=== PATIENT | female | born 1965 | race American Indian/Alaskan Native ===

== ENCOUNTER 2017-05-18 16:54 | Inpatient (IN) | payer MEDICARE ==
[2017-05-18 17:36] VITALS: BMI 27.4
[2017-05-18 18:08] LABS: BASO # 0.1 K/uL (0.0-0.2); BASO % 0.5 % (0.0-2.0); EOS # 0.5 K/uL (0.0-0.7); EOS % 2.8 % (0.0-4.0); LYMPH # 4.1 K/uL (1.0-4.3); LYMPH % 23.7 % (20.0-40.0); MEAN CELL VOLUME 81.8 fL (81.0-99.0); MEAN CORPUSCULAR HEMOGLOBIN 26.7 pg (27.0-31.0); MEAN CORPUSCULAR HGB CONC 32.6 g/dL (33.0-37.0); MONO # 0.8 K/uL (0.0-0.8); MONO % 4.3 % (0.0-10.0); RED CELL DISTRIBUTION WIDTH 14.1 % (11.5-14.5); WHITE BLOOD COUNT 17.4 K/uL (4.8-10.8)
[2017-05-18 18:26] LABS: VENOUS BLOOD GAS BASE EXCESS 6.2 mmol/L (0.0-2.0); VENOUS BLOOD GAS PCO2 54 mmHg (40-60); VENOUS BLOOD PH 7.39 (7.32-7.43)
--- NOTE | 2017-05-18 18:26 | C.PDOC ---
History Of Present Illness 51-year-old female, PMHx includes paraplegia, presents to the emergency department with complaints of a fever, chills, a clogged suprapubic alegria catheter since yesterday, multiple episodes of shortness of breath today, and a decubitus ulcer to right posterior thigh. Patient recently moved to the area from [place], where her physicans were. She denies cough, vomiting, diarrhea., chest pain, palpitations. Time Seen by Provider: 05/18/17 17:21 Chief Complaint (Nursing): Shortness Of Breath History Per: Patient History/Exam Limitations: no limitations Onset/Duration Of Symptoms: Days Current Symptoms Are (Timing): Still Present Current Respiratory Medications: See Home Med List Severity: Moderate Past Medical History Reviewed: Historical Data, Nursing Documentation, Vital Signs Vital Signs: Last Vital Signs Temp 97.1 F L 05/22/17 07:10 Pulse 86 05/22/17 09:23 Resp 20 05/22/17 07:10 BP 119/86 05/22/17 09:23 Pulse Ox 98 05/22/17 07:10 Family History: States: No Known Family Hx Review Of Systems Except As Marked, All Systems Reviewed And Found Negative. Constitutional: Positive for: Fever, Chills Cardiovascular: Negative for: Chest Pain, Palpitations Respiratory: Positive for: Shortness of Breath. Negative for: Cough, Sputum Gastrointestinal: Negative for: Nausea, Vomiting, Abdominal Pain, Diarrhea Musculoskeletal: Negative for: Back Pain Skin: Positive for: Other (decubitus ulcer) Physical Exam - Physical Exam Appears: Well, Non-toxic, No Acute Distress Skin: Warm, Dry, No Rash Head: Normacephalic Eye(s): bilateral: Normal Inspection Oral Mucosa: Moist Neck: Normal ROM Chest: Symmetrical Cardiovascular: Rhythm Regular, No Murmur Respiratory: Normal Breath Sounds, No Accessory Muscle Use, No Rales, No Rhonchi , No Wheezing Gastrointestinal/Abdominal: Normal Exam, Bowel Sounds, Soft, No Tenderness Rectal: Other (a stage 2 4x1cm decubitus ulcer at the right posterior thigh, where the gluteus meets the thigh) Pelvic: Other (Suprapubic catheter w/ cloudy yellow urine. No surrounding erythema or swelling from Stoma. ) Pulses: Left Dorsalis Pedis: Normal, Right Dorsalis Pedis: Normal Neurological/Psych: Oriented x3 ED Course And Treatment - Laboratory Results Result Diagrams: 05/22/17 06:26 05/22/17 06:26 O2 Sat by Pulse Oximetry: 99 (RA) Pulse Ox Interpretation: Normal - Radiology CXR: Interpreted by Me, Viewed By Me (no infiltrates/effusions) Progress Note: Blood work, UA, EKG, CXR ordered and reviewed. Patient given IV NS bolus. 7:15PM- Multiple attemps made by nurse for peripheral IV access. 2 attempts made by me at B/L EJs that were unsuccessful. PICC line consult entered for tomorrow PICC insertion. Night nurse able to insert small peripheral IV for IV antibiotics. IV cefepime and IV NS bolus given. - Physician Consult Information Physician Contacted: Chelsea Garcia Outcome Of Conversation: Discussed patient with Dr. Garcia, her prior PMD when she lived in [place]. He agrees with admission to his service for UTI, leukocytosis in patient with suprapubic catheter and paraplegia. He is aware CTA chest pending. Disposition - Disposition Disposition: HOSPITALIZED Disposition Time: 19:15 Condition: STABLE - Clinical Impression Clinical Impression: Leukocytosis, Suprapubic catheter, Paraplegia, UTI (urinary tract infection) - Scribe Statement The provider has reviewed the documentation as recorded by the Scribe (Josefina Bledsoe) All medical record entries made by the Scribe were at my direction and personally dictated by me. I have reviewed the chart and agree that the record accurately reflects my personal performance of the history, physical exam, medical decision making, and the department course for this patient. I have also personally directed, reviewed, and agree with the discharge instructions and disposition. Decision To Admit - Pt Status Changed To: Hospital Disposition Of: Inpatient - Admit Certification Admit to Inpatient:: After my assessment, the patient will require hospitalization for at least two midnights. This is because of the severity of symptoms shown, intensity of services needed, and/or the medical risk in this patient being treated as an outpatient. - InPatient: Physician Admission Certification: I certify that this patient requires 2 or more midnights of care for the following reason:: see notes - . Bed Request Type: Regular Admitting Physician: Chelsea Garcia Patient Diagnosis: UTI (urinary tract infection), Suprapubic catheter, Leukocytosis, Paraplegia
[2017-05-18] MEDS ORDERED: Sodium Chloride 0.9% 1,000 ML IV ONE (18:33)
[2017-05-18] MEDS ORDERED: Cefepime 1 GM in Sodium Chloride 0.9% 50 ML IVPB STA (18:41)
[2017-05-18 19:00] LABS: RBC URINE 152 /hpf (0-3); URINE BACTERIA MOD (<OCC); URINE BILIRUBIN NEGATIVE (NEGATIVE); URINE BLOOD 2+ (NEGATIVE); URINE CALCIUM OXALATE CRYSTALS FEW /hpf (<OCC); URINE COLOR Yellow (YELLOW); URINE GLUCOSE (UA) NORMAL (Normal); URINE KETONE NEGATIVE (NEGATIVE); URINE LEUKOCYTE ESTERASE 3+ Leu/uL (Negative); URINE PROTEIN 2+ mg/dL (NEGATIVE); URINE UROBILINOGEN NORMAL mg/dL (0.2-1.0); WBC URINE 665 /hpf (0-5)
[2017-05-18 19:45] LABS: BILIRUBIN,TOTAL 0.6 mg/dL (0.2-1.3); GFR AFRICAN-AMERICAN > 60; GLUCOSE,RANDOM 88 mg/dL (65-105)
[2017-05-18 19:47] LABS: ALB/GLOB RATIO 0.8 (1.0-2.1); ALKALINE PHOSPHATASE 105 U/L (38-126); ALT/SGPT 40 U/L (9-52); AST/SGOT 31 U/L (14-36); BLOOD UREA NITROGEN 11 mg/dL (7-17); CARBON DIOXIDE 31 mmol/L (22-30); CHLORIDE 103 mmol/L (98-107); POTASSIUM 4.2 mmol/L (3.6-5.2); SODIUM 142 mmol/L (132-148); TOTAL PROTEIN 9.3 g/dL (6.3-8.3)
[2017-05-18] MEDS ORDERED: Iodixanol 320 MG/ML 100 ML BOTTLE IV ONE (20:02)
[2017-05-18] MEDS ORDERED: Cefepime IV 1 gm in Dextrose 1 GM/50 ML BAG IVPB ONE (21:00)
[2017-05-18] MEDS ORDERED: Oxycodone/Acetaminophen 5/325 mg Tab PO PRN (21:10)
[2017-05-18] MEDS ORDERED: Enoxaparin 80 mg Syringe ONE (21:45)
[2017-05-18] MEDS: Enoxaparin 80 mg Syringe SC SCH (22:57)
[2017-05-19 00:57] VITALS: RESP 20
[2017-05-19] MEDS: Oxycodone/Acetaminophen 5/325 mg Tab PO PRN ×4 (01:29→23:49)
--- NOTE | 2017-05-19 08:14 | RAD ---
Chest x-ray single frontal view History: Shortness of breath. Comparison: 04/02/2011. Findings: Mild venous congestion. Right hilar prominence. Tortuous aorta. Persistent ovoid radiopaque density projects over the midline trachea. Impression: Mild venous congestion. Right hilar prominence. Tortuous aorta. Persistent ovoid radiopaque density projects over the midline trachea.
[2017-05-19] MEDS: Enoxaparin 80 mg Syringe SC SCH ×2 (09:41→22:43)
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
[2017-05-19] MEDS: Cefepime IV 1 gm in Dextrose 1 GM/50 ML BAG IVPB SCH (19:50)
[2017-05-20] MEDS: Cefepime IV 1 gm in Dextrose 1 GM/50 ML BAG IVPB SCH ×2 (04:53→16:59)
[2017-05-20] MEDS: Oxycodone/Acetaminophen 5/325 mg Tab PO PRN ×3 (06:06→20:19)
[2017-05-20] MEDS ORDERED: Bisacodyl 5mg EC Tab PO ONE (09:30)
[2017-05-20] MEDS: Enoxaparin 80 mg Syringe SC SCH ×2 (11:10→21:42)
--- NOTE | 2017-05-20 11:33 | CP.PCM.PN ---
Subjective - Date & Time of Evaluation Date of Evaluation: 05/20/17 Time of Evaluation: 08:00 - Subjective Subjective: culture + Pseudomonas iv cefepime reordered Objective - Vital Signs/Intake and Output Vital Signs (last 24 hours): Temp Pulse Resp BP Pulse Ox 97.3 F L 82 20 123/87 99 05/20/17 07:56 05/20/17 07:56 05/20/17 07:56 05/20/17 07:56 05/20/17 07:56 Intake and Output: 05/20/17 05/20/17 06:59 18:59 Output Total 300 Balance -300 - Medications Medications: Current Medications Diphenhydramine HCl (Benadryl) 25 mg PO Q6 PRN PRN Reason: Itching / Pruritus Last Admin: 05/19/17 13:42 Dose: 25 mg Docusate Sodium (Colace) 100 mg PO DAILY [facility] Last Admin: 05/20/17 11:09 Dose: 100 mg Enoxaparin Sodium (Lovenox) 70 mg SC Q12 [facility] Last Admin: 05/20/17 11:10 Dose: 70 mg Cefepime HCl (Maxipime Iv 1 Gm Premix) 1 gm in 50 mls @ 100 mls/hr IVPB Q12H [facility] Last Admin: 05/20/17 04:53 Dose: 100 mls/hr Oxycodone/Acetaminophen (Percocet 5/325 Mg Tab) 2 tab PO Q6H PRN PRN Reason: Pain, severe (8-10) Stop: 05/21/17 21:13 Last Admin: 05/20/17 06:06 Dose: 2 tab - Labs Labs: 05/18/17 18:06 05/18/17 19:28 - Constitutional Appears: Non-toxic, Chronically Ill - Head Exam Head Exam: NORMOCEPHALIC - Eye Exam Eye Exam: absent: Scleral icterus - ENT Exam ENT Exam: Mucous Membranes Dry - Neck Exam Neck Exam: absent: Lymphadenopathy - Respiratory Exam Respiratory Exam: Decreased Breath Sounds - Cardiovascular Exam Cardiovascular Exam: REGULAR RHYTHM - GI/Abdominal Exam GI & Abdominal Exam: Distended, Soft - Rectal Exam Rectal Exam: Deferred - Exam Exam: NORMAL INSPECTION - Extremities Exam Extremities Exam: absent: Pedal Edema - Back Exam Back Exam: absent: CVA tenderness (L), CVA tenderness (R) Assessment and Plan (1) Paraplegia Status: Acute (2) Sepsis Status: Acute (3) UTI (urinary tract infection) Status: Acute
[2017-05-20 11:53] LABS: BASO # 0.1 K/uL (0.0-0.2); BASO % 0.4 % (0.0-2.0); EOS # 0.3 K/uL (0.0-0.7); EOS % 1.9 % (0.0-4.0); HEMATOCRIT 38.7 % (34.0-47.0); LYMPH # 2.9 K/uL (1.0-4.3); LYMPH % 21.6 % (20.0-40.0); MEAN CELL VOLUME 82.5 fL (81.0-99.0); MEAN CORPUSCULAR HEMOGLOBIN 26.8 pg (27.0-31.0); MEAN CORPUSCULAR HGB CONC 32.6 g/dL (33.0-37.0); MEAN PLATELET VOLUME 8.2 fL (7.2-11.7); MONO # 0.6 K/uL (0.0-0.8); MONO % 4.5 % (0.0-10.0); RED CELL DISTRIBUTION WIDTH 14.4 % (11.5-14.5); WHITE BLOOD COUNT 13.5 K/uL (4.8-10.8)
[2017-05-20 12:36] LABS: ALB/GLOB RATIO 1.1 (1.0-2.1); ALKALINE PHOSPHATASE 93 U/L (38-126); ALT/SGPT 41 U/L (9-52); AST/SGOT 19 U/L (14-36); BILIRUBIN,DIRECT 0.2 mg/dL (0.0-0.4); BILIRUBIN,TOTAL 0.2 mg/dL (0.2-1.3); BLOOD UREA NITROGEN 11 mg/dL (7-17); CALCIUM 8.1 mg/dl (8.6-10.4); CARBON DIOXIDE 30 mmol/L (22-30); CHLORIDE 105 mmol/L (98-107); GFR AFRICAN-AMERICAN > 60; GLUCOSE,RANDOM 86 mg/dL (65-105); MAGNESIUM 1.9 mg/dL (1.6-2.3); PHOSPHOROUS 2.3 mg/dL (2.5-4.5); POTASSIUM 3.5 mmol/L (3.6-5.2); SODIUM 142 mmol/L (132-148); TOTAL PROTEIN 6.7 g/dL (6.3-8.3)
--- NOTE | 2017-05-20 13:14 | VASCLAB ---
PROCEDURE: Lower Extremity Venous Duplex Exam. HISTORY: r/o DVT PRIORS: None. TECHNIQUE: Bilateral common femoral, femoral, popliteal and posterior tibial, peroneal and great saphenous veins were evaluated. Flow was assessed with color Doppler, compressibility, assessment of phasic flow and augmentation response. Report prepared by TOYIN Velasquez FINDINGS: RIGHT: 1. Common Femoral Vein: 1.1. Compressibility - Fully compressible: Thrombus - None : Flow - Phasic: Augmentation -Normal: Reflux - None. 2. Femoral Vein: 2.1. Compressibility - Fully compressible: Thrombus - None : Flow - Phasic: Augmentation -Normal: Reflux - None. 3. Popliteal Vein: 3.1. Compressibility - Fully compressible: Thrombus - None : Flow - Phasic: Augmentation -Normal: Reflux - None. 4. Posterior Tibial Vein: 4.1. Compressibility - Fully compressible: Thrombus - None: Flow - Phasic: Augmentation -Normal: Reflux - None. 5. Peroneal Vein: 5.1. Unable to visualize. 6. Great Saphenous Vein: 6.1. Compressibility - Fully compressible: Thrombus - None: Flow - Phasic: Augmentation - Normal: Reflux - None. LEFT: 1. Common Femoral Vein: 1.1. Compressibility - Fully compressible: Thrombus - None: Flow - Phasic: Augmentation -Normal: Reflux - None. 2. Femoral Vein: 2.1. Compressibility - Fully compressible: Thrombus - None: Flow - Phasic: Augmentation -Normal: Reflux - None. 3. Popliteal Vein: 3.1. Compressibility - Fully compressible: Thrombus - None : Flow - Phasic: Augmentation -Normal: Reflux - None. 4. Posterior Tibial Vein: 4.1. Unable to visualize. 5. Peroneal Vein: 5.1. Compressibility - Fully compressible: Thrombus - None: Flow - Phasic: Augmentation -Normal: Reflux - None. 6. Great Saphenous Vein: 6.1. Compressibility - Fully compressible: Thrombus - None: Flow - Phasic: Augmentation - Normal: Reflux - None. OTHER FINDINGS: Technically difficult/limited imaging due to patient condition. Unable to position the patient for proper scanning protocol. IMPRESSION: Right: No evidence of deep or superficial vein thrombosis of the right lower extremity, for the imaged veins. Left: No evidence of deep or superficial vein thrombosis of the left lower extremity, for the imaged veins.
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
[2017-05-20] MEDS ORDERED: Potassium Chloride 20 mEq ER Tab PO ONE (13:30)
--- NOTE | 2017-05-20 14:14 | PCM.SURG1 ---
Surgeon's Initial Post Op Note - Surgeon's Notes Surgeon: Anthony Tello MD Supervisor Inspection: None Type of Anesthesia: Local Pre-Operative Diagnosis: UTI Operative Findings: patent left basilic vein. catheter tip: cavoatrial junction. catheter length: 45 cm Post-Operative Diagnosis: same Operation Performed: LUE PICC Insertion Specimen/Specimens Removed: N/A Estimated Blood Loss: EBL {In ML}: 0 Post-Op Condition: Good Date of Surgery/Procedure: 05/20/17 Time of Surgery/Procedure: 14:14
[2017-05-20] MEDS ORDERED: Iodixanol 320 MG/ML 100 ML BOTTLE IV ONE (15:55)
--- NOTE | 2017-05-20 20:40 | CT ---
EXAM: CT Chest With Intravenous Contrast EXAM DATE/TIME: Exam ordered 05/20/2017 8:23 AM CLINICAL HISTORY: 51 years old, female; Pain; Chest pressure and other: D dimer elevated; Additional info: Elevated ddimer TECHNIQUE: Axial computed tomography images of the chest with intravenous contrast during the arterial phase of enhancement. All CT scans at this facility use one or more dose reduction techniques, viz.: automated exposure control; ma/kV adjustment per patient size (including targeted exams where dose is matched to indication; i.e. head); or iterative reconstruction technique. Coronal and sagittal reformatted images were created and reviewed. CONTRAST: 100 mL of visipaque 320 administered intravenously. COMPARISON: No relevant prior studies available. FINDINGS: Pulmonary arteries: Tiny bubble of air is noted within the main pulmonary artery and is related to the contrast injection. No pulmonary embolism. Aorta: No acute findings. No thoracic aortic aneurysm.Incidental note is made of a ductus diverticulum. Lungs: Unremarkable. No mass. No consolidation. Pleural space: Unremarkable. No significant effusion. No pneumothorax. Heart: Unremarkable. No cardiomegaly. No significant pericardial effusion. No evidence of RV dysfunction. Mediastinum: There is a small hiatal hernia. Bones/joints: Shrapnel is noted within the spinal canal at T4 No acute fracture. No dislocation. Soft tissues: Unremarkable. Lymph nodes: Subcentimeter lymph lesions are seen in the prevascular space. Tubes, lines and devices: The tip of a left PICC line is located within the right atrium IMPRESSION: 1. No pulmonary embolism 2. Small hiatal hernia. 3. Shrapnel within the spinal canal at T4
[2017-05-21] MEDS: Oxycodone/Acetaminophen 5/325 mg Tab PO PRN ×4 (02:12→21:04)
[2017-05-21] MEDS: Cefepime IV 1 gm in Dextrose 1 GM/50 ML BAG IVPB SCH ×2 (03:40→17:15)
--- NOTE | 2017-05-21 07:49 | HP ---
HISTORY OF PRESENT ILLNESS: This is a 51-year-old female admitted to the hospital with chief complaint of shortness of breath, UTI, frequency, a wound that is nonhealing in the leg. Patient came to the ER, advised admission, patient has . PHYSICAL EXAMINATION: GENERAL: Patient is awake, alert, and oriented. VITAL SIGNS: Temperature 99.7, pulse 95. HEENT: Within normal limits. NECK: Supple. CHEST: Symmetrical. HEART: Regular. ABDOMEN: Obese. EXTREMITIES: The patient in the right leg. IMPRESSION: Patient suffers from urinary tract infection, idiopathic thrombocytopenic purpura the patient needs IV antibiotics. Empirical anticoagulation. Chelsea Dodd MD
[2017-05-21] MEDS: Enoxaparin 80 mg Syringe SC SCH ×2 (10:59→21:05)
--- NOTE | 2017-05-21 11:35 | CP.PCM.PN ---
Subjective - Date & Time of Evaluation Date of Evaluation: 05/21/17 Time of Evaluation: 08:00 - Subjective Subjective: comfortable on iv cefepime rx in progress for uti /pyelo Objective - Vital Signs/Intake and Output Vital Signs (last 24 hours): Temp Pulse Resp BP Pulse Ox 98.1 F 92 H 20 116/82 99 05/21/17 07:05 05/21/17 07:05 05/21/17 07:05 05/21/17 07:05 05/21/17 07:05 Intake and Output: 05/21/17 05/21/17 06:59 18:59 Intake Total 930 Output Total 1000 Balance -70 - Medications Medications: Current Medications Diphenhydramine HCl (Benadryl) 25 mg PO Q6 PRN PRN Reason: Itching / Pruritus Last Admin: 05/21/17 01:24 Dose: 25 mg Docusate Sodium (Colace) 100 mg PO DAILY [facility] Last Admin: 05/21/17 10:59 Dose: 100 mg Enoxaparin Sodium (Lovenox) 70 mg SC Q12 KEN Last Admin: 05/21/17 10:59 Dose: 70 mg Cefepime HCl (Maxipime Iv 1 Gm Premix) 1 gm in 50 mls @ 100 mls/hr IVPB Q12H [facility] Last Admin: 05/21/17 03:40 Dose: 100 mls/hr Oxycodone/Acetaminophen (Percocet 5/325 Mg Tab) 2 tab PO Q6H PRN PRN Reason: Pain, severe (8-10) Stop: 05/21/17 21:13 Last Admin: 05/21/17 08:16 Dose: 2 tab - Labs Labs: 05/20/17 11:40 05/20/17 11:40 - Constitutional Appears: Non-toxic, Chronically Ill - Head Exam Head Exam: NORMOCEPHALIC - Eye Exam Eye Exam: PERRL - ENT Exam ENT Exam: Mucous Membranes Dry - Neck Exam Neck Exam: absent: Lymphadenopathy - Respiratory Exam Respiratory Exam: Rhonchi. absent: Chest Wall Tenderness - Cardiovascular Exam Cardiovascular Exam: REGULAR RHYTHM - GI/Abdominal Exam GI & Abdominal Exam: Distended, Soft Assessment and Plan (1) Paraplegia Status: Acute (2) Sepsis Status: Acute (3) UTI (urinary tract infection) Status: Acute
[2017-05-21 12:02] LABS: BASO # 0.1 K/uL (0.0-0.2); BASO % 0.7 % (0.0-2.0); EOS # 0.3 K/uL (0.0-0.7); EOS % 2.4 % (0.0-4.0); HEMATOCRIT 37.3 % (34.0-47.0); LYMPH # 3.1 K/uL (1.0-4.3); LYMPH % 23.4 % (20.0-40.0); MEAN CELL VOLUME 82.6 fL (81.0-99.0); MEAN CORPUSCULAR HEMOGLOBIN 27.2 pg (27.0-31.0); MEAN PLATELET VOLUME 8.3 fL (7.2-11.7); MONO # 0.7 K/uL (0.0-0.8); RED CELL DISTRIBUTION WIDTH 14.2 % (11.5-14.5); WHITE BLOOD COUNT 13.3 K/uL (4.8-10.8)
[2017-05-21 12:37] LABS: ALB/GLOB RATIO 1.1 (1.0-2.1); ALKALINE PHOSPHATASE 82 U/L (38-126); ALT/SGPT 22 U/L (9-52); AST/SGOT 22 U/L (14-36); BILIRUBIN,TOTAL 0.4 mg/dL (0.2-1.3); BLOOD UREA NITROGEN 9 mg/dL (7-17); CALCIUM 7.9 mg/dl (8.6-10.4); CARBON DIOXIDE 25 mmol/L (22-30); CHLORIDE 100 mmol/L (98-107); GFR AFRICAN-AMERICAN > 60; GLUCOSE,RANDOM 97 mg/dL (65-105); POTASSIUM 4.1 mmol/L (3.6-5.2); SODIUM 130 mmol/L (132-148); TOTAL PROTEIN 6.3 g/dL (6.3-8.3)
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
[2017-05-22] MEDS: Cefepime IV 1 gm in Dextrose 1 GM/50 ML BAG IVPB SCH (05:14)
[2017-05-22] MEDS ORDERED: Oxycodone/Acetaminophen 5/325 mg Tab PO ONE (05:52)
[2017-05-22 06:39] LABS: BASO # 0.1 K/uL (0.0-0.2); BASO % 0.5 % (0.0-2.0); EOS # 0.4 K/uL (0.0-0.7); EOS % 3.4 % (0.0-4.0); HEMATOCRIT 37.1 % (34.0-47.0); LYMPH # 4.1 K/uL (1.0-4.3); LYMPH % 32.5 % (20.0-40.0); MEAN CORPUSCULAR HEMOGLOBIN 26.9 pg (27.0-31.0); MEAN CORPUSCULAR HGB CONC 32.8 g/dL (33.0-37.0); MEAN PLATELET VOLUME 8.3 fL (7.2-11.7); MONO # 0.6 K/uL (0.0-0.8); MONO % 5.1 % (0.0-10.0); RED CELL DISTRIBUTION WIDTH 14.3 % (11.5-14.5); WHITE BLOOD COUNT 12.6 K/uL (4.8-10.8)
[2017-05-22 07:00] LABS: ALB/GLOB RATIO 1.1 (1.0-2.1); ALKALINE PHOSPHATASE 88 U/L (38-126); ALT/SGPT 25 U/L (9-52); AST/SGOT 22 U/L (14-36); BILIRUBIN,TOTAL 0.4 mg/dL (0.2-1.3); BLOOD UREA NITROGEN 8 mg/dL (7-17); CARBON DIOXIDE 29 mmol/L (22-30); CHLORIDE 99 mmol/L (98-107); GFR AFRICAN-AMERICAN > 60; GLUCOSE,RANDOM 87 mg/dL (65-105); MAGNESIUM 2.2 mg/dL (1.6-2.3); PHOSPHOROUS 3.7 mg/dL (2.5-4.5); POTASSIUM 4.2 mmol/L (3.6-5.2); SODIUM 132 mmol/L (132-148); TOTAL PROTEIN 6.3 g/dL (6.3-8.3)
[2017-05-22 07:46] VITALS: TEMP 97.1
[2017-05-22] MEDS ORDERED: Sodium Chloride 0.9% 500 ML IV ONE (09:02)
[2017-05-22 09:23] VITALS: BP 119/86; PULSE 86
[2017-05-22] MEDS ORDERED: Enoxaparin 40 mg Syringe SC SCH (10:00)
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
[2017-05-22 19:56] VITALS: O2SAT 99
--- NOTE | 2017-05-23 09:43 | RAD ---
PROCEDURE: PERIPHERALLY INSERTED CENTRAL VENOUS CATHETER INSERTION CLINICAL HISTORY: 51-year-old female requiring long-term intravenous antibiotics is referred to Interventional Radiology for PICC insertion. PROCEDURE: 1. Focused ultrasound of the left upper extremity vasculature. 2. Ultrasound-guided access. 3. Insertion of peripherally inserted central venous catheter. 4. Fluoroscopic localization of catheter tip. PRE-PROCEDURE FINDINGS: 1. Patent left basilic vein. POST-PROCEDURE FINDINGS: 1. Placement of 4 Bulgarian single-lumen PICC. 2. Catheter length: 45 cm. 3. Catheter tip at cavoatrial junction. INTERVENTIONAL RADIOLOGIST: Anthony Tello M.D. (the attending was present for the entire procedure.) ANESTHESIA: None. MEDICATION: Lidocaine 1% for local subcutaneous analgesia. COMPLICATIONS: None. RADIATION DOSE: Fluoroscopy Time: 24.3 seconds DAP: 0.107 mGym2 PROCEDURE DESCRIPTION AND FINDINGS: The risks, benefits, alternatives and possible complications of the procedure were fully discussed; all questions were answered and informed consent was obtained. The patient was brought into the interventional suite and a pre-procedure 'time-out' was performed. The patient was brought into the interventional suite and a pre-procedure 'time-out' was performed. The patient was placed on the fluoroscopy table in the supine position. The left upper extremity was prepped and draped in the usual sterile fashion. Maximum sterile barrier precautions were maintained throughout the entire procedure. Preliminary ultrasound images of the left upper extremity vasculature demonstrate patency of the left basilic vein. Following subcutaneous infiltration of 1% lidocaine for local analgesia, under ultrasound guidance, a 21-gauge needle was advanced into the left basilic vein with real-time visualization of needle entry. The ultrasound images were permanently recorded and submitted to the PACS. A 0.018 guidewire was advanced centrally to the cavoatrial junction. A 4.5 Bulgarian peel-away sheath was advanced over the guidewire. After obtaining length measurement, a 4 Bulgarian single-lumen PICC was placed with the tip of the catheter at the cavoatrial junction. The total length of the catheter is 45 cm. The hub of the PICC was secured to the skin using a sterile adhesive bandage. The patient tolerated the procedure well without immediate post-procedure complications and was transferred back to the floor in stable condition. IMPRESSION: SUCCESSFUL INSERTION OF LEFT UPPER EXTREMITY PICC. PICC OK TO USE.
== END 2017-05-22 16:30 | DRG 872 ==
LOC: C.ER 16:54 → C.9E 19:15 → C.6T 22:58
PROVIDERS: ADMIT Internal Medicine Pulmonary Disease; ATTEND Internal Medicine Pulmonary Disease
PROC: 02HV33Z Insertion of Infusion Device into Superior Vena Cava, Percutaneous Approach (ICD-10-PCS; principal; 2017-05-20)
DX: A41.9 Sepsis, unspecified organism (principal); D69.3 Immune thrombocytopenic purpura; G82.20 Paraplegia, unspecified; L89.892 Pressure ulcer of other site, stage 2; N39.0 Urinary tract infection, site not specified; T83.090A Other mechanical complication of cystostomy catheter, initial encounter; Z87.440 Personal history of urinary (tract) infections; E87.6 Hypokalemia; K59.00 Constipation, unspecified; R79.1 Abnormal coagulation profile; F17.210 Nicotine dependence, cigarettes, uncomplicated; Z93.59 Other cystostomy status; Y73.8 Miscellaneous gastroenterology and urology devices associated with adverse incidents, not elsewhere classified

== ENCOUNTER 2017-06-22 06:04 | Emergency (ER) | payer MEDICARE ==
[2017-06-22 06:05] VITALS: BMI 27.4
[2017-06-22] MEDS ORDERED: Bacitracin 500 Units/gm Oint Foilpak UD ONE (07:37)
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
[2017-06-22 08:09] LABS: BASO # 0.1 K/uL (0.0-0.2); BASO % 1.1 % (0.0-2.0); EOS # 0.5 K/uL (0.0-0.7); EOS % 3.5 % (0.0-4.0); HEMOGLOBIN 12.6 g/dL (11.0-16.0); LYMPH % 22.8 % (20.0-40.0); MEAN CELL VOLUME 80.8 fL (81.0-99.0); MEAN CORPUSCULAR HEMOGLOBIN 26.7 pg (27.0-31.0); MEAN CORPUSCULAR HGB CONC 33.1 g/dL (33.0-37.0); MEAN PLATELET VOLUME 8.2 fL (7.2-11.7); MONO # 0.8 K/uL (0.0-0.8); MONO % 6.5 % (0.0-10.0); NEUT # 8.6 K/uL (1.8-7.0); NEUT % 66.1 % (50.0-75.0); RBC 4.72 Mil/uL (3.80-5.20); RED CELL DISTRIBUTION WIDTH 14.2 % (11.5-14.5); WHITE BLOOD COUNT 13.1 K/uL (4.8-10.8)
[2017-06-22 08:22] LABS: ALB/GLOB RATIO 0.9 (1.0-2.1); ALBUMIN 3.6 g/dL (3.5-5.0); ALT/SGPT 43 U/L (9-52); AST/SGOT 23 U/L (14-36); BLOOD UREA NITROGEN 7 mg/dL (7-17); CALCIUM 8.8 mg/dl (8.6-10.4); GFR AFRICAN-AMERICAN > 60; GFR NON-AFRICAN AMERICAN > 60
[2017-06-22 08:51] LABS: SQUAMOUS EPITHIAL 1 /hpf (0-5); URINE BACTERIA MANY (<OCC); URINE BILIRUBIN NEGATIVE (NEGATIVE); URINE BLOOD 2+ (NEGATIVE); URINE CALCIUM OXALATE CRYSTALS RARE /hpf (<OCC); URINE CLARITY Hazy (Clear); URINE COLOR Yellow (YELLOW); URINE GLUCOSE (UA) NORMAL (Normal); URINE LEUKOCYTE ESTERASE 3+ Leu/uL (Negative); URINE NITRATE POSITIVE (NEGATIVE); URINE PROTEIN NEGATIVE (NEGATIVE); URINE UROBILINOGEN NORMAL mg/dL (0.2-1.0)
--- NOTE | 2017-06-22 09:02 | CT ---
PROCEDURE: CT pelvis HISTORY: hx paraplegia, s/p fall from chair COMPARISON: Not available TECHNIQUE: 2.5 mm contiguous axial sections were acquired through the pelvis. Sagittal and coronal images were reformatted from the axial scan. Total exam DLP: 929.[address] exam was performed using 1 or more of the following dose reduction techniques: Automated exposure control, adjustment of the mA and/or kV according to patient size, and/or use of iterative reconstruction technique. FINDINGS: There is no acute fracture identified. There is either a healing fracture or stress injury involving the left iliac wing. This is best appreciated on coronal series 601, images 90 through 97. There is severe osteoarthritis of both hips. There is a left femoral medullary ike noted with a proximal nail. The sacroiliac joints are preserved. There is no lytic or blastic osseous lesion. The inferior pubic ramus is notably gracile bilaterally, likely due to paraplegia and long-standing disuse. . A Orourke catheter is seen within a decompressed urinary bladder. The uterus is unremarkable. A normal appendix is identified. IMPRESSION: Healing fracture versus stress injury through left iliac wing. No acute fracture. Severe osteoarthritis of both hips.
--- NOTE | 2017-06-22 09:48 | RAD ---
PROCEDURE: CHEST RADIOGRAPH, 1 VIEW HISTORY: cough COMPARISON: 05/18/2017 FINDINGS: LUNGS: Clear. PLEURA: No pneumothorax or pleural fluid seen. CARDIOVASCULAR: Normal. OSSEOUS STRUCTURES: No significant abnormalities. VISUALIZED UPPER ABDOMEN: Normal. OTHER FINDINGS: None. IMPRESSION: No active disease.
[2017-06-22 12:29] VITALS: BP 87/66; PULSE 132; RESP 94; TEMP 97.7; O2SAT 95
== END 2017-06-22 13:33 ==
LOC: C.ER 06:04 → SUPCPDRO 06:04 → C.ER 13:33
DX: S91.112A Laceration without foreign body of left great toe without damage to nail, initial encounter (principal); W05.0XXA Fall from non-moving wheelchair, initial encounter; Y92.9 Unspecified place or not applicable; G82.20 Paraplegia, unspecified

== ENCOUNTER 2017-10-26 12:24 | Inpatient (IN) | payer MEDICARE ==
[2017-10-26 12:26] VITALS: BMI 27.4
[2017-10-26] MEDS ORDERED: Sodium Chloride 0.9% 1,000 ML IV ONE ×4 (13:06→20:15)
[2017-10-26 13:54] LABS: BASO # 0.2 K/uL (0.0-0.2); EOS # 0.1 K/uL (0.0-0.7); EOS % 0.4 % (0.0-4.0); HEMOGLOBIN 11.2 g/dL (11.0-16.0); LYMPH % 15.9 % (20.0-40.0); MEAN CELL VOLUME 76.8 fL (81.0-99.0); MEAN CORPUSCULAR HEMOGLOBIN 25.7 pg (27.0-31.0); MEAN CORPUSCULAR HGB CONC 33.4 g/dL (33.0-37.0); MEAN PLATELET VOLUME 7.6 fL (7.2-11.7); MONO # 1.2 K/uL (0.0-0.8); MONO % 6.2 % (0.0-10.0); NEUT # 14.2 K/uL (1.8-7.0); NEUT % 76.5 % (50.0-75.0); RBC 4.37 Mil/uL (3.80-5.20); RED CELL DISTRIBUTION WIDTH 15.1 % (11.5-14.5); WHITE BLOOD COUNT 18.6 K/uL (4.8-10.8)
[2017-10-26 14:06] LABS: SQUAMOUS EPITHIAL 4 /hpf (0-5); URINE BACTERIA MANY (<OCC); URINE BILIRUBIN NEGATIVE (NEGATIVE); URINE BLOOD 2+ (NEGATIVE); URINE CLARITY Hazy (Clear); URINE COLOR Amber (YELLOW); URINE GLUCOSE (UA) NORMAL (Normal); URINE LEUKOCYTE ESTERASE 2+ Leu/uL (Negative); URINE PROTEIN 2+ mg/dL (NEGATIVE)
[2017-10-26 14:07] LABS: ALB/GLOB RATIO 0.8 (1.0-2.1); ALBUMIN 3.7 g/dL (3.5-5.0); ALT/SGPT 17 U/L (9-52); AST/SGOT 14 U/L (14-36); BLOOD UREA NITROGEN 9 mg/dL (7-17); CALCIUM 8.7 mg/dl (8.6-10.4); GFR AFRICAN-AMERICAN > 60; GFR NON-AFRICAN AMERICAN > 60
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
[2017-10-26 14:17] LABS: INR 1.2; PROTHROMBIN TIME 13.5 SECONDS (9.7-12.2)
[2017-10-26 14:19] LABS: B-TYPE NATRIURETIC PEPTIDE 50.1 pg/mL (0-900)
[2017-10-26 14:43] LABS: BARBITURATES, UR NEGATIVE (NEGATIVE); BENZODIAZEPINES, UR NEGATIVE (NEGATIVE); PHENCYCLIDINE, UR NEGATIVE (NEGATIVE)
[2017-10-26] MEDS ORDERED: Iodixanol 320 MG/ML 200 ML BOTTLE IV ONE (14:51)
[2017-10-26 15:33] LABS: OPIATES, UR POSITIVE (NEGATIVE)
[2017-10-26] MEDS ORDERED: Enoxaparin 40 mg Syringe SC STA (15:40)
[2017-10-26] MEDS ORDERED: Piperacillin/Tazobact 3.375 gm 100 ML IV STA (15:40)
[2017-10-26] MEDS ORDERED: Vancomycin 1 GM 1 GM/250 ML BAG IV SCH (15:45)
--- NOTE | 2017-10-26 15:48 | CT ---
PROCEDURE: CT Abdomen and Pelvis with contrast HISTORY: suprapubic stent, LLQ abd pain, sacral decub COMPARISON: ulcer TECHNIQUE: CT scan of the abdomen and pelvis was performed after administration of intravenous contrast. Oral contrast was not administered. Coronal and sagittal reformatted images were obtained. Contrast dose: 100 mL Visipaque 320 Radiation dose: Total exam DLP = 99.19 mGy-cm. This CT exam was performed using one or more of the following dose reduction techniques: Automated exposure control, adjustment of the mA and/or kV according to patient size, and/or use of iterative reconstruction technique. FINDINGS: LOWER THORAX: The visualized lungs are clear. LIVER: The liver is normal in size and there is fatty infiltration. No gross lesion or ductal dilatation. GALLBLADDER AND BILE DUCTS: The gallbladder is contracted. PANCREAS: Normal in size with homogeneous enhancement. No gross lesion or ductal dilatation. SPLEEN: Normal in size and appearance. ADRENALS: No discrete nodules. KIDNEYS AND URETERS: Normal in size with homogeneous enhancement. No hydronephrosis. No solid mass. VASCULATURE: No aortic aneurysm. BOWEL: The small bowel loops are normal in caliber. There is moderate amount of stool in the colon. No bowel dilatation or obstruction. APPENDIX: Normal appendix. PERITONEUM: No free fluid. No free air. LYMPH NODES: No enlarged lymph nodes. BLADDER: Indwelling suprapubic catheter with subsequent decompression. REPRODUCTIVE: The uterus is normal in size. There is a right lateral wall intramural fibroid. BONES: No acute fracture. Within normal limits for the patient's age. Status post open reduction and internal fixation of left proximal femoral fracture. 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 OTHER FINDINGS: There is a small fat containing inguinal hernia. There is a skin breakdown in the right posterior buttock and 3.9 x 2.4 cm hyperdense lesion with central air and inflammatory changes in the surrounding fat in the right gluteal region. IMPRESSION: No acute abdominal or pelvic abnormality. Fatty liver. Fibroid uterus. Suspect 3.9 x 2.4 cm right gluteal deep subcutaneous abscess and decubitus ulcer.
[2017-10-26] MEDS ORDERED: Enoxaparin 40 mg Syringe ONE (16:09)
[2017-10-26] MEDS ORDERED: Enoxaparin 30 mg Syringe ONE (16:09)
[2017-10-26] MEDS ORDERED: Piperacillin/Tazobact 3.375 gm 100 ML IVPB ONE (16:09)
[2017-10-26] MEDS ORDERED: Benzoin Compound Tincture (60 ml) ONE (16:20)
--- NOTE | 2017-10-26 17:21 | RAD ---
PROCEDURE: CHEST RADIOGRAPH, 1 VIEW HISTORY: SOB COMPARISON: Portable chest 06/22/2017. FINDINGS: LUNGS: No acute pulmonary disease appreciated bilaterally. Left PICC now removed. Right matter port inserted terminating at the distal superior vena cava by an apparent right internal jugular approach. PLEURA: No pneumothorax or pleural fluid seen. CARDIOVASCULAR: Normal. OSSEOUS STRUCTURES: No significant abnormalities. VISUALIZED UPPER ABDOMEN: Normal. OTHER FINDINGS: None. IMPRESSION: No interval acute cardiopulmonary disease appreciated. Interval removal of left PICC noted and installation of right MediPort as described above.
[2017-10-26] MEDS ORDERED: Potassium Chloride 10 mEq ER Tab PO STA (17:39)
[2017-10-26] MEDS ORDERED: Potassium Chloride 20 mEq ER Tab PO ONE (17:48)
[2017-10-26] MEDS ORDERED: Sodium Chloride 0.9% 1,000 ML ONE ×2 (17:57→20:17)
[2017-10-26] MEDS ORDERED: Vancomycin 1 gm/NS 200 ml 1 GM/200 ML BAG IVPB ONE (18:00)
[2017-10-27] MEDS ORDERED: Magnesium Hydroxide Susp 30 ml UD PO PRN (06:58)
[2017-10-27] MEDS: Piperacill/Tazo 3.375gm in Dex 3.375 GM/50 ML BAG IVPB SCH ×3 (09:00→21:13)
[2017-10-27] MEDS: Vancomycin 1 gm/NS 200 ml 1 GM/200 ML BAG IVPB SCH ×2 (09:35→21:13)
[2017-10-27] MEDS: Multiple Vitamins Tab PO SCH (10:00)
[2017-10-27] MEDS: Enoxaparin 40 mg Syringe SC SCH (10:00)
[2017-10-27] MEDS: Oxycodone/Acetaminophen 5/325 mg Tab PO PRN (14:20)
[2017-10-27] MEDS: oxyCODONE 5 mg Immediate Release Tab PO PRN (17:49)
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
[2017-10-28] MEDS: Piperacill/Tazo 3.375gm in Dex 3.375 GM/50 ML BAG IVPB SCH ×4 (01:03→21:31)
[2017-10-28] MEDS: Oxycodone/Acetaminophen 5/325 mg Tab PO PRN ×3 (01:09→20:07)
[2017-10-28] MEDS: Albuterol-Ipratrop 3 mg / 0.5 (3 ml) UD IH SCH ×7 (01:42→23:54)
[2017-10-28] MEDS: Vancomycin 1 gm/NS 200 ml 1 GM/200 ML BAG IVPB SCH ×2 (08:27→20:00)
[2017-10-28] MEDS: Enoxaparin 40 mg Syringe SC SCH (09:38)
[2017-10-28] MEDS: Multiple Vitamins Tab PO SCH (09:38)
[2017-10-28] MEDS: oxyCODONE 5 mg Immediate Release Tab PO PRN ×2 (12:34→21:35)
[2017-10-29] MEDS: Piperacill/Tazo 3.375gm in Dex 3.375 GM/50 ML BAG IVPB SCH ×4 (01:30→20:34)
[2017-10-29] MEDS: Alum-Mag Hydrox-Simethicone Susp (30 mL) PO PRN ×2 (02:00→21:45)
[2017-10-29] MEDS: Albuterol-Ipratrop 3 mg / 0.5 (3 ml) UD IH SCH ×6 (03:25→23:54)
[2017-10-29] MEDS: Oxycodone/Acetaminophen 5/325 mg Tab PO PRN ×3 (05:32→18:12)
--- NOTE | 2017-10-29 08:45 | HP ---
HISTORY OF PRESENT ILLNESS: A 52-year-old female with history of ____ low extremity. The patient has history of paraplegia, came to the ER with severe infection in both feet, pouring puss and cellulitis, advised admission. The patient has ____ ulcers in the past, in the past, recurrent UTI. PHYSICAL EXAMINATION: GENERAL: The patient is awake, alert, and oriented. VITAL SIGNS: Temperature is 98.5. HEENT: Within normal limits. NECK: Supple. CHEST: Symmetrical. HEART: Regular. ABDOMEN: Soft. EXTREMITIES: Bilateral cellulitis . IMPRESSION AND PLAN: Patient suffers from low extremity. Patient get bed rest, supportive care. Chelsea Dodd MD
[2017-10-29] MEDS: Vancomycin 1 gm/NS 200 ml 1 GM/200 ML BAG IVPB SCH ×2 (09:00→21:36)
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
[2017-10-29] MEDS: Multiple Vitamins Tab PO SCH (10:51)
[2017-10-29] MEDS: Enoxaparin 40 mg Syringe SC SCH (10:51)
[2017-10-29] MEDS: oxyCODONE 5 mg Immediate Release Tab PO PRN ×3 (10:55→18:11)
--- NOTE | 2017-10-29 10:58 | CP.PCM.PN ---
Subjective - Date & Time of Evaluation Date of Evaluation: 10/29/17 Time of Evaluation: 11:00 - Subjective Subjective: iv RX IN PROGRESS CULTURES PENDING Objective - Vital Signs/Intake and Output Vital Signs (last 24 hours): Temp Pulse Resp BP Pulse Ox 98.3 F 83 20 105/62 97 10/29/17 07:53 10/29/17 07:53 10/29/17 07:53 10/29/17 07:53 10/29/17 07:53 Intake and Output: 10/29/17 10/29/17 06:59 18:59 Intake Total 640 Output Total 800 Balance -160 - Medications Medications: Current Medications Acetaminophen (Tylenol 325mg Tab) 650 mg PO Q6 PRN PRN Reason: Pain, Mild (1-3) Last Admin: 10/27/17 11:12 Dose: 650 mg Al Hydrox/Mg Hydrox/Simethicone (Maalox Plus 30 Ml) 30 ml PO PRN PRN PRN Reason: Heartburn Last Admin: 10/29/17 02:00 Dose: 30 ml Albuterol/Ipratropium (Duoneb 3 Mg/0.5 Mg (3 Ml) Ud) 3 ml IH RQ4 [facility] Last Admin: 10/29/17 07:59 Dose: Not Given Alprazolam (Xanax) 2 mg PO Q8H PRN PRN Reason: Anxiety Diphenhydramine HCl (Benadryl) 25 mg PO Q6 [facility] Last Admin: 10/29/17 05:27 Dose: 25 mg Enoxaparin Sodium (Lovenox) 40 mg SC DAILY [facility] Last Admin: 10/29/17 10:51 Dose: 40 mg Vancomycin/Sodium Chloride (Vancomycin 1 Gm/Ns 200 Ml) 1 gm in 200 mls @ 166.6 mls/hr IVPB Q12H [facility] PRN Reason: Protocol Stop: 11/01/17 08:01 Last Admin: 10/29/17 09:00 Dose: 166.6 mls/hr Piperacillin Sod/Tazobactam Sod (Zosyn 3.375 Gm Iv Premix) 3.375 gm in 50 mls @ 100 mls/hr IVPB Q6H [facility] PRN Reason: Protocol Last Admin: 10/29/17 08:00 Dose: 100 mls/hr Magnesium Hydroxide (Milk Of Magnesia) 30 ml PO PRN PRN PRN Reason: Constipation Multivitamins (Hexavitamin) 1 tab PO DAILY [facility] Last Admin: 10/29/17 10:51 Dose: 1 tab Oxycodone HCl (Oxycodone Immediate Release Tab) 5 mg PO Q6 PRN PRN Reason: Pain, moderate (4-7) Last Admin: 10/29/17 10:55 Dose: 5 mg Oxycodone/Acetaminophen (Percocet 5/325 Mg Tab) 1 tab PO Q6 PRN PRN Reason: Pain, severe (8-10) Last Admin: 10/29/17 05:32 Dose: 1 tab Sennosides (Senokot Tab) 8.6 mg PO DAILY [facility] Last Admin: 10/29/17 10:51 Dose: 8.6 mg - Labs Labs: 10/26/17 13:49 10/26/17 13:49 PT 13.5 SECONDS (9.7-12.2) H 10/26/17 13:49 INR 1.2 10/26/17 13:49 APTT 39 SECONDS (21-34) H 10/26/17 13:49 - Constitutional Appears: Non-toxic, Chronically Ill - Head Exam Head Exam: NORMOCEPHALIC - Eye Exam Eye Exam: PERRL - ENT Exam ENT Exam: Mucous Membranes Dry - Neck Exam Neck Exam: absent: Lymphadenopathy - Respiratory Exam Respiratory Exam: Decreased Breath Sounds - Cardiovascular Exam Cardiovascular Exam: REGULAR RHYTHM - GI/Abdominal Exam GI & Abdominal Exam: Distended, Soft. absent: Tenderness - Rectal Exam Rectal Exam: Deferred - Exam Exam: NORMAL INSPECTION Assessment and Plan (1) Chronic wound of extremity Status: Acute (2) Leg edema Status: Acute (3) Paraplegia Status: Acute (4) UTI (urinary tract infection) Status: Acute
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
--- NOTE | 2017-10-29 14:14 | RAD ---
PROCEDURE: Bilateral Feet Radiographs. HISTORY: rule out OM of heels COMPARISON: 03/30/2011 left foot FINDINGS: BONES: Right Foot: No acute fractures noted. Old healed fractures with hardware fixation ankle and hindfoot level noted Left Foot: No acute fractures noted. Old healed fractures with hardware fixation ankle and hindfoot level noted JOINTS: Right Foot: Osteoarthrosis Left Foot: Osteoarthrosis SOFT TISSUES: Right Foot: Mild moderate soft tissue swelling mainly mid-forefoot level. History of heel ulcer no gross periosteal reaction here noted Left Foot: Soft tissue swelling similar mid-forefoot level much more pronounced on the left side much more pronounced dorsum. OTHER FINDINGS: Marked bilateral generalized osteopenia present. Hammertoe orientations both feet also noted IMPRESSION: History of heel ulcers -concern for heel osteomyelitis. No periosteal reaction or cortical destruction to suggest osteomyelitis. Marked osteopenia compatible with disuse. Bilateral osteoarthrosis Hammertoe orientations both feet also noted The bilateral soft tissue swelling is compatible with superimposed cellulitis -findings are more pronounced in the left forefoot-dorsal area despite history of heel ulcers No gas-forming cellulitis of either side noted
[2017-10-29 22:19] LABS: SQUAMOUS EPITHIAL 2 /hpf (0-5); URINE BILIRUBIN NEGATIVE (NEGATIVE); URINE BLOOD NEGATIVE (NEGATIVE); URINE CALCIUM OXALATE CRYSTALS RARE /hpf (<OCC); URINE CLARITY Hazy (Clear); URINE COLOR Yellow (YELLOW); URINE GLUCOSE (UA) NORMAL (Normal); URINE LEUKOCYTE ESTERASE 1+ Leu/uL (Negative); URINE PROTEIN NEGATIVE (NEGATIVE); URINE UROBILINOGEN NORMAL mg/dL (0.2-1.0)
[2017-10-30] MEDS: Piperacill/Tazo 3.375gm in Dex 3.375 GM/50 ML BAG IVPB SCH ×4 (01:20→19:08)
[2017-10-30] MEDS: Albuterol-Ipratrop 3 mg / 0.5 (3 ml) UD IH SCH ×6 (03:41→23:41)
[2017-10-30] MEDS: Oxycodone/Acetaminophen 5/325 mg Tab PO PRN ×3 (05:38→20:17)
[2017-10-30] MEDS: oxyCODONE 5 mg Immediate Release Tab PO PRN ×3 (05:39→20:16)
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
[2017-10-30 07:39] LABS: BASO % 0.3 % (0.0-2.0); EOS # 0.4 K/uL (0.0-0.7); EOS % 2.6 % (0.0-4.0); HEMOGLOBIN 11.1 g/dL (11.0-16.0); LYMPH # 4.4 K/uL (1.0-4.3); LYMPH % 29.8 % (20.0-40.0); MEAN CELL VOLUME 77.5 fL (81.0-99.0); MEAN CORPUSCULAR HEMOGLOBIN 25.9 pg (27.0-31.0); MEAN CORPUSCULAR HGB CONC 33.3 g/dL (33.0-37.0); MEAN PLATELET VOLUME 7.9 fL (7.2-11.7); MONO # 0.6 K/uL (0.0-0.8); MONO % 4.1 % (0.0-10.0); NEUT # 9.3 K/uL (1.8-7.0); NEUT % 63.2 % (50.0-75.0); RBC 4.29 Mil/uL (3.80-5.20); RED CELL DISTRIBUTION WIDTH 15.2 % (11.5-14.5); WHITE BLOOD COUNT 14.7 K/uL (4.8-10.8)
[2017-10-30 07:47] LABS: ALB/GLOB RATIO 0.9 (1.0-2.1); ALBUMIN 3.7 g/dL (3.5-5.0); ALT/SGPT < 6 U/L (9-52); AST/SGOT 19 U/L (14-36); BLOOD UREA NITROGEN 8 mg/dL (7-17); CALCIUM 8.4 mg/dl (8.6-10.4); GFR AFRICAN-AMERICAN > 60; GFR NON-AFRICAN AMERICAN > 60
[2017-10-30] MEDS: Vancomycin 1 gm/NS 200 ml 1 GM/200 ML BAG IVPB SCH ×2 (08:45→20:15)
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
[2017-10-30] MEDS: Multiple Vitamins Tab PO SCH (11:00)
[2017-10-30] MEDS: Enoxaparin 40 mg Syringe SC SCH (11:00)
--- NOTE | 2017-10-30 12:14 | CP.PCM.PN ---
Subjective - Date & Time of Evaluation Date of Evaluation: 10/30/17 Time of Evaluation: 12:11 - Subjective Subjective: podiatry progress note for Dr. Wall: 52 y/o female seen at bedside regarding bilateral heel ulcerations. Patient resting comfortably in bed in NAD. Multipodus boots are intact to bilateral lower extremities with dressings clean,dry,intact. No strikethrough on bandages noted. Patient denies any other pedal complaints at this time. She denies n/f/c/ v/d/sob. Objective - Vital Signs/Intake and Output Vital Signs (last 24 hours): Temp Pulse Resp BP Pulse Ox 97.6 F 76 20 138/77 99 10/30/17 07:04 10/30/17 07:04 10/30/17 07:04 10/30/17 07:04 10/30/17 07:04 Intake and Output: 10/30/17 10/30/17 06:59 18:59 Intake Total 850 Output Total 1550 Balance -700 - Medications Medications: Current Medications Acetaminophen (Tylenol 325mg Tab) 650 mg PO Q6 PRN PRN Reason: Pain, Mild (1-3) Last Admin: 10/27/17 11:12 Dose: 650 mg Al Hydrox/Mg Hydrox/Simethicone (Maalox Plus 30 Ml) 30 ml PO PRN PRN PRN Reason: Heartburn Last Admin: 10/29/17 21:45 Dose: 30 ml Albuterol/Ipratropium (Duoneb 3 Mg/0.5 Mg (3 Ml) Ud) 3 ml IH RQ4 [facility] Last Admin: 10/30/17 11:05 Dose: Not Given Alprazolam (Xanax) 2 mg PO Q8H PRN PRN Reason: Anxiety Diphenhydramine HCl (Benadryl) 25 mg PO Q6 [facility] Last Admin: 10/30/17 11:39 Dose: 25 mg Enoxaparin Sodium (Lovenox) 40 mg SC DAILY [facility] Last Admin: 10/30/17 11:00 Dose: 40 mg Vancomycin/Sodium Chloride (Vancomycin 1 Gm/Ns 200 Ml) 1 gm in 200 mls @ 166.6 mls/hr IVPB Q12H [facility] PRN Reason: Protocol Stop: 11/01/17 08:01 Last Admin: 10/30/17 08:45 Dose: 166.6 mls/hr Piperacillin Sod/Tazobactam Sod (Zosyn 3.375 Gm Iv Premix) 3.375 gm in 50 mls @ 100 mls/hr IVPB Q6H [facility] PRN Reason: Protocol Last Admin: 10/30/17 08:00 Dose: 100 mls/hr Magnesium Hydroxide (Milk Of Magnesia) 30 ml PO PRN PRN PRN Reason: Constipation Multivitamins (Hexavitamin) 1 tab PO DAILY [facility] Last Admin: 10/30/17 11:00 Dose: 1 tab Oxycodone HCl (Oxycodone Immediate Release Tab) 5 mg PO Q6 PRN PRN Reason: Pain, moderate (4-7) Last Admin: 10/30/17 05:39 Dose: 5 mg Oxycodone/Acetaminophen (Percocet 5/325 Mg Tab) 1 tab PO Q6 PRN PRN Reason: Pain, severe (8-10) Last Admin: 10/30/17 05:38 Dose: 1 tab Sennosides (Senokot Tab) 8.6 mg PO DAILY [facility] Last Admin: 10/30/17 11:39 Dose: 8.6 mg - Labs Labs: 10/30/17 07:15 10/30/17 07:15 PT 13.5 SECONDS (9.7-12.2) H 10/26/17 13:49 INR 1.2 10/26/17 13:49 APTT 39 SECONDS (21-34) H 10/26/17 13:49 - Constitutional Appears: Well, Non-toxic, No Acute Distress - Extremities Exam Additional comments: vasc: lightly palpable DP pulses b/l, nonpalpable PT pulses b/l, TG wnl, CFT < 3 sec to all digits neuro: grossly diminished derm: nonpitting edema noted to dorsum of foot b/l right lower extremity: superficial nonstageable ulceration noted to plantar/ posterior heel with necrotic base and fibrotic border, mild malodor, no active purulence, no active drainage, no ascending cellulitis left lower extremity: superficial nonstageable ulcerations to posterior heel with necrotic eschar and plantar rearfoot with granular base and fibrotic borders, no ascending cellulitis, no purulence, no active drainage ortho: pain on palpation to plantar heels bilaterally - Neurological Exam Neurological Exam: Alert, Awake - Psychiatric Exam Psychiatric exam: Normal Affect, Normal Mood Assessment and Plan - Assessment and Plan (Free Text) Assessment: 52 y/o female seen at bedside for bilateral unstageable heel ulcerations Plan: patient evaluated and chart reviewed discussed in detail with attending Dr. Wall labs and vitals reviewed; WBC 14.7, afebrile cont. IV abx as per ID; vanco 1g q12h, zosyn 3.375g q6h wound cx of bilateral feet obtained; prelim: gram negative ike, gram positive cocci applied xeroform DSD, to bilateral feet multipodus boot applied to both feet cont. to wear boots in bed at all times for offloading heels X rays of bilateral feet show severe osteopenia, no acute signs of OM, no signs of periosteal reaction of calcaneus, soft tissue swelling noted at dorsal midfoot L>R podiatry will continue to monitor while patient remains in house
--- NOTE | 2017-10-30 15:18 | CP.PCM.PN ---
Subjective - Date & Time of Evaluation Date of Evaluation: 10/30/17 Time of Evaluation: 08:00 - Subjective Subjective: iv rx in progress wound care on board cultures pendingg Objective - Vital Signs/Intake and Output Vital Signs (last 24 hours): Temp Pulse Resp BP Pulse Ox 97.6 F 76 20 138/77 99 10/30/17 07:04 10/30/17 07:04 10/30/17 07:04 10/30/17 07:04 10/30/17 07:04 Intake and Output: 10/30/17 10/30/17 06:59 18:59 Intake Total 850 700 Output Total 1550 1200 Balance -700 -500 - Medications Medications: Current Medications Acetaminophen (Tylenol 325mg Tab) 650 mg PO Q6 PRN PRN Reason: Pain, Mild (1-3) Last Admin: 10/27/17 11:12 Dose: 650 mg Al Hydrox/Mg Hydrox/Simethicone (Maalox Plus 30 Ml) 30 ml PO PRN PRN PRN Reason: Heartburn Last Admin: 10/29/17 21:45 Dose: 30 ml Albuterol/Ipratropium (Duoneb 3 Mg/0.5 Mg (3 Ml) Ud) 3 ml IH RQ4 [facility] Last Admin: 10/30/17 11:05 Dose: Not Given Alprazolam (Xanax) 2 mg PO Q8H PRN PRN Reason: Anxiety Diphenhydramine HCl (Benadryl) 25 mg PO Q6 [facility] Last Admin: 10/30/17 11:39 Dose: 25 mg Enoxaparin Sodium (Lovenox) 40 mg SC DAILY [facility] Last Admin: 10/30/17 11:00 Dose: 40 mg Vancomycin/Sodium Chloride (Vancomycin 1 Gm/Ns 200 Ml) 1 gm in 200 mls @ 166.6 mls/hr IVPB Q12H [facility] PRN Reason: Protocol Stop: 11/01/17 08:01 Last Admin: 10/30/17 08:45 Dose: 166.6 mls/hr Piperacillin Sod/Tazobactam Sod (Zosyn 3.375 Gm Iv Premix) 3.375 gm in 50 mls @ 100 mls/hr IVPB Q6H [facility]EN PRN Reason: Protocol Last Admin: 10/30/17 13:51 Dose: 100 mls/hr Magnesium Hydroxide (Milk Of Magnesia) 30 ml PO PRN PRN PRN Reason: Constipation Multivitamins (Hexavitamin) 1 tab PO DAILY [facility] Last Admin: 10/30/17 11:00 Dose: 1 tab Oxycodone HCl (Oxycodone Immediate Release Tab) 5 mg PO Q6 PRN PRN Reason: Pain, moderate (4-7) Last Admin: 10/30/17 13:52 Dose: 5 mg Oxycodone/Acetaminophen (Percocet 5/325 Mg Tab) 1 tab PO Q6 PRN PRN Reason: Pain, severe (8-10) Last Admin: 10/30/17 13:53 Dose: 1 tab Sennosides (Senokot Tab) 8.6 mg PO DAILY [facility] Last Admin: 10/30/17 11:39 Dose: 8.6 mg - Labs Labs: 10/30/17 07:15 10/30/17 07:15 PT 13.5 SECONDS (9.7-12.2) H 10/26/17 13:49 INR 1.2 10/26/17 13:49 APTT 39 SECONDS (21-34) H 10/26/17 13:49 - Constitutional Appears: Non-toxic, Chronically Ill - Head Exam Head Exam: NORMOCEPHALIC - Eye Exam Eye Exam: PERRL - ENT Exam ENT Exam: Mucous Membranes Dry - Neck Exam Neck Exam: absent: Thyromegaly - Respiratory Exam Respiratory Exam: Decreased Breath Sounds - Cardiovascular Exam Cardiovascular Exam: REGULAR RHYTHM - GI/Abdominal Exam GI & Abdominal Exam: Distended - Rectal Exam Rectal Exam: Deferred - Exam Exam: NORMAL INSPECTION Assessment and Plan (1) Chronic wound of extremity Status: Acute (2) Leg edema Status: Acute (3) Paraplegia Status: Acute (4) UTI (urinary tract infection) Status: Acute
[2017-10-31] MEDS: Piperacill/Tazo 3.375gm in Dex 3.375 GM/50 ML BAG IVPB SCH ×4 (01:36→19:51)
[2017-10-31] MEDS: Oxycodone/Acetaminophen 5/325 mg Tab PO PRN ×4 (02:48→22:24)
[2017-10-31] MEDS: oxyCODONE 5 mg Immediate Release Tab PO PRN ×4 (02:50→22:25)
[2017-10-31] MEDS: Albuterol-Ipratrop 3 mg / 0.5 (3 ml) UD IH SCH ×6 (03:20→23:59)
[2017-10-31 06:32] LABS: BASO # 0.1 K/uL (0.0-0.2); BASO % 0.5 % (0.0-2.0); EOS # 0.5 K/uL (0.0-0.7); EOS % 3.3 % (0.0-4.0); HEMOGLOBIN 10.4 g/dL (11.0-16.0); LYMPH # 3.8 K/uL (1.0-4.3); MEAN CORPUSCULAR HEMOGLOBIN 25.7 pg (27.0-31.0); MEAN PLATELET VOLUME 7.7 fL (7.2-11.7); MONO # 0.7 K/uL (0.0-0.8); MONO % 4.8 % (0.0-10.0); NEUT % 64.4 % (50.0-75.0); RBC 4.04 Mil/uL (3.80-5.20); RED CELL DISTRIBUTION WIDTH 15.3 % (11.5-14.5); WHITE BLOOD COUNT 13.9 K/uL (4.8-10.8)
[2017-10-31 07:15] LABS: ALB/GLOB RATIO 0.9 (1.0-2.1); ALBUMIN 3.3 g/dL (3.5-5.0); AST/SGOT 19 U/L (14-36); BLOOD UREA NITROGEN 7 mg/dL (7-17); GFR AFRICAN-AMERICAN > 60; GFR NON-AFRICAN AMERICAN > 60
[2017-10-31 07:30] LABS: ALT/SGPT < 6 U/L (9-52)
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
[2017-10-31] MEDS: Vancomycin 1 gm/NS 200 ml 1 GM/200 ML BAG IVPB SCH ×2 (08:55→20:24)
[2017-10-31] MEDS: Multiple Vitamins Tab PO SCH (09:18)
[2017-10-31] MEDS: Enoxaparin 40 mg Syringe SC SCH (09:18)
--- NOTE | 2017-10-31 11:26 | CP.PCM.PN ---
Subjective - Date & Time of Evaluation Date of Evaluation: 10/31/17 Time of Evaluation: 11:23 - Subjective Subjective: podiatry progress note for Dr. Wall: 52 y/o female seen at bedside regarding bilateral heel ulcerations. Patient resting comfortably in bed in NAD. Multipodus boots are intact to bilateral lower extremities with dressings clean,dry,intact. No strikethrough on bandages noted. Patient denies any other pedal complaints at this time. She denies n/f/c/ v/d/sob. Objective - Vital Signs/Intake and Output Vital Signs (last 24 hours): Temp Pulse Resp BP Pulse Ox 97.8 F 56 L 20 142/92 H 100 10/31/17 08:00 10/31/17 08:00 10/31/17 08:00 10/31/17 08:00 10/31/17 08:00 Intake and Output: 10/31/17 10/31/17 06:59 18:59 Intake Total 700 Output Total 1300 Balance -600 - Medications Medications: Current Medications Acetaminophen (Tylenol 325mg Tab) 650 mg PO Q6 PRN PRN Reason: Pain, Mild (1-3) Last Admin: 10/27/17 11:12 Dose: 650 mg Al Hydrox/Mg Hydrox/Simethicone (Maalox Plus 30 Ml) 30 ml PO PRN PRN PRN Reason: Heartburn Last Admin: 10/29/17 21:45 Dose: 30 ml Albuterol/Ipratropium (Duoneb 3 Mg/0.5 Mg (3 Ml) Ud) 3 ml IH RQ4 [facility] Last Admin: 10/31/17 07:34 Dose: Not Given Alprazolam (Xanax) 2 mg PO Q8H PRN PRN Reason: Anxiety Diphenhydramine HCl (Benadryl) 25 mg PO Q6 [facility] Last Admin: 10/31/17 05:42 Dose: 25 mg Docusate Sodium (Colace) 100 mg PO BID [facility] Enoxaparin Sodium (Lovenox) 40 mg SC DAILY [facility] Last Admin: 10/31/17 09:18 Dose: 40 mg Vancomycin/Sodium Chloride (Vancomycin 1 Gm/Ns 200 Ml) 1 gm in 200 mls @ 166.6 mls/hr IVPB Q12H [facility] PRN Reason: Protocol Stop: 11/01/17 08:01 Last Admin: 10/31/17 08:55 Dose: 166.6 mls/hr Piperacillin Sod/Tazobactam Sod (Zosyn 3.375 Gm Iv Premix) 3.375 gm in 50 mls @ 100 mls/hr IVPB Q6H [facility] PRN Reason: Protocol Last Admin: 10/31/17 08:43 Dose: 100 mls/hr Lactulose (Enulose) 20 gm PO HS [facility] Magnesium Hydroxide (Milk Of Magnesia) 30 ml PO PRN PRN PRN Reason: Constipation Last Admin: 10/31/17 10:45 Dose: 30 ml Multivitamins (Hexavitamin) 1 tab PO DAILY [facility] Last Admin: 10/31/17 09:18 Dose: 1 tab Ondansetron HCl (Zofran Inj) 4 mg IVP Q8 PRN PRN Reason: Nausea/Vomiting Last Admin: 10/31/17 01:50 Dose: 4 mg Oxycodone HCl (Oxycodone Immediate Release Tab) 5 mg PO Q6 PRN PRN Reason: Pain, moderate (4-7) Last Admin: 10/31/17 09:19 Dose: 5 mg Oxycodone/Acetaminophen (Percocet 5/325 Mg Tab) 2 tab PO Q6 PRN PRN Reason: Pain, severe (8-10) Sennosides (Senokot Tab) 8.6 mg PO DAILY [facility] Last Admin: 10/31/17 09:18 Dose: 8.6 mg - Labs Labs: 10/31/17 06:24 10/31/17 06:24 PT 13.5 SECONDS (9.7-12.2) H 10/26/17 13:49 INR 1.2 10/26/17 13:49 APTT 39 SECONDS (21-34) H 10/26/17 13:49 - Constitutional Appears: Well, Non-toxic, No Acute Distress - Extremities Exam Additional comments: vasc: lightly palpable DP pulses b/l, nonpalpable PT pulses b/l, TG wnl, CFT < 3 sec to all digits neuro: grossly diminished derm: nonpitting edema noted to dorsum of foot b/l right lower extremity: superficial nonstageable ulceration noted to plantar/ posterior heel with necrotic base and fibrotic border, mild malodor, no active purulence, no active drainage, no ascending cellulitis left lower extremity: superficial nonstageable ulcerations to posterior heel with necrotic eschar and plantar rearfoot with granular base and fibrotic borders, no ascending cellulitis, no purulence, no active drainage ortho: pain on palpation to plantar heels bilaterally - Neurological Exam Neurological Exam: Alert, Awake - Psychiatric Exam Psychiatric exam: Normal Affect, Normal Mood Assessment and Plan - Assessment and Plan (Free Text) Assessment: 52 y/o female seen at bedside for bilateral unstageable heel ulcerations Plan: patient evaluated and chart reviewed discussed in detail with attending Dr. Wall labs and vitals reviewed; WBC 13.9, afebrile cont. IV abx as per ID; vanco 1g q12h, zosyn 3.375g q6h wound cx of bilateral feet obtained: R foot: MRSA, Enterobacter cloacae L foot: MRSA, enterobacter cloacae applied xeroform DSD, to bilateral feet multipodus boot applied to both feet cont. to wear boots in bed at all times for offloading heels X rays of bilateral feet show severe osteopenia, no acute signs of OM, no signs of periosteal reaction of calcaneus, soft tissue swelling noted at dorsal midfoot L>R podiatry will continue to monitor while patient remains in house
--- NOTE | 2017-10-31 14:59 | CP.PCM.PN ---
Subjective - Date & Time of Evaluation Date of Evaluation: 10/31/17 Time of Evaluation: 07:00 - Subjective Subjective: wounds + for MRSA/ enterobacter iv rx ordered Objective - Vital Signs/Intake and Output Vital Signs (last 24 hours): Temp Pulse Resp BP Pulse Ox 97.5 F L 91 H 20 103/70 100 10/31/17 13:34 10/31/17 13:34 10/31/17 13:34 10/31/17 13:34 10/31/17 13:34 Intake and Output: 10/31/17 10/31/17 06:59 18:59 Intake Total 700 730 Output Total 1300 400 Balance -600 330 - Medications Medications: Current Medications Acetaminophen (Tylenol 325mg Tab) 650 mg PO Q6 PRN PRN Reason: Pain, Mild (1-3) Last Admin: 10/27/17 11:12 Dose: 650 mg Al Hydrox/Mg Hydrox/Simethicone (Maalox Plus 30 Ml) 30 ml PO PRN PRN PRN Reason: Heartburn Last Admin: 10/29/17 21:45 Dose: 30 ml Albuterol/Ipratropium (Duoneb 3 Mg/0.5 Mg (3 Ml) Ud) 3 ml IH RQ4 [facility] Last Admin: 10/31/17 07:34 Dose: Not Given Alprazolam (Xanax) 2 mg PO Q8H PRN PRN Reason: Anxiety Diphenhydramine HCl (Benadryl) 25 mg PO Q6 [facility] Last Admin: 10/31/17 12:39 Dose: 25 mg Docusate Sodium (Colace) 100 mg PO BID [facility] Enoxaparin Sodium (Lovenox) 40 mg SC DAILY [facility] Last Admin: 10/31/17 09:18 Dose: 40 mg Vancomycin/Sodium Chloride (Vancomycin 1 Gm/Ns 200 Ml) 1 gm in 200 mls @ 166.6 mls/hr IVPB Q12H [facility] PRN Reason: Protocol Stop: 11/01/17 08:01 Last Admin: 10/31/17 08:55 Dose: 166.6 mls/hr Piperacillin Sod/Tazobactam Sod (Zosyn 3.375 Gm Iv Premix) 3.375 gm in 50 mls @ 100 mls/hr IVPB Q6H [facility] PRN Reason: Protocol Last Admin: 10/31/17 13:41 Dose: 100 mls/hr Magnesium Hydroxide (Milk Of Magnesia) 30 ml PO PRN PRN PRN Reason: Constipation Last Admin: 10/31/17 10:45 Dose: 30 ml Multivitamins (Hexavitamin) 1 tab PO DAILY [facility] Last Admin: 10/31/17 09:18 Dose: 1 tab Ondansetron HCl (Zofran Inj) 4 mg IVP Q8 PRN PRN Reason: Nausea/Vomiting Last Admin: 10/31/17 13:44 Dose: 4 mg Oxycodone HCl (Oxycodone Immediate Release Tab) 5 mg PO Q6 PRN PRN Reason: Pain, moderate (4-7) Last Admin: 10/31/17 09:19 Dose: 5 mg Oxycodone/Acetaminophen (Percocet 5/325 Mg Tab) 2 tab PO Q6 PRN PRN Reason: Pain, severe (8-10) Sennosides (Senokot Tab) 8.6 mg PO DAILY [facility] Last Admin: 10/31/17 09:18 Dose: 8.6 mg - Labs Labs: 10/31/17 06:24 10/31/17 06:24 PT 13.5 SECONDS (9.7-12.2) H 10/26/17 13:49 INR 1.2 10/26/17 13:49 APTT 39 SECONDS (21-34) H 10/26/17 13:49 - Constitutional Appears: Non-toxic, Chronically Ill - Head Exam Head Exam: NORMOCEPHALIC - Eye Exam Eye Exam: PERRL - ENT Exam ENT Exam: Mucous Membranes Dry - Neck Exam Neck Exam: absent: Lymphadenopathy - Respiratory Exam Respiratory Exam: Decreased Breath Sounds - Cardiovascular Exam Cardiovascular Exam: REGULAR RHYTHM - GI/Abdominal Exam GI & Abdominal Exam: Distended, Soft - Rectal Exam Rectal Exam: Deferred - Exam Exam: NORMAL INSPECTION - Extremities Exam Extremities Exam: absent: Pedal Edema - Back Exam Back Exam: absent: CVA tenderness (L), CVA tenderness (R) - Neurological Exam Neurological Exam: Alert, Awake Neuro motor strength exam: Left Lower Extremity: 2/1, Right Lower Extremity: 2/1 - Psychiatric Exam Psychiatric exam: Depressed - Skin Skin Exam: Dry Assessment and Plan (1) Chronic wound of extremity Status: Acute (2) Leg edema Status: Acute (3) Paraplegia Status: Acute (4) UTI (urinary tract infection) Status: Acute - Assessment and Plan (Free Text) Assessment: cont iv rx consider mri dr mclean for debridement
[2017-11-01] MEDS: Piperacill/Tazo 3.375gm in Dex 3.375 GM/50 ML BAG IVPB SCH ×3 (01:42→14:48)
[2017-11-01] MEDS: Albuterol-Ipratrop 3 mg / 0.5 (3 ml) UD IH SCH ×6 (04:32→23:42)
[2017-11-01] MEDS: Oxycodone/Acetaminophen 5/325 mg Tab PO PRN ×3 (05:22→19:30)
--- NOTE | 2017-11-01 06:19 | CARD ---
APPROVED REPORT EKG Measurement Heart [id number] <Conclusion> Normal sinus rhythm Right bundle branch block Abnormal ECG
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
[2017-11-01] MEDS: Vancomycin 1 gm/NS 200 ml 1 GM/200 ML BAG IVPB SCH (08:38)
[2017-11-01] MEDS: oxyCODONE 5 mg Immediate Release Tab PO PRN ×3 (08:46→22:01)
[2017-11-01] MEDS: Enoxaparin 40 mg Syringe SC SCH (11:07)
[2017-11-01] MEDS: Multiple Vitamins Tab PO SCH (11:07)
[2017-11-01 13:33] LABS: BASO # 0.1 K/uL (0.0-0.2); BASO % 0.5 % (0.0-2.0); EOS # 0.4 K/uL (0.0-0.7); EOS % 2.8 % (0.0-4.0); HEMOGLOBIN 11.1 g/dL (11.0-16.0); LYMPH # 3.6 K/uL (1.0-4.3); MEAN CELL VOLUME 78.1 fL (81.0-99.0); MEAN CORPUSCULAR HEMOGLOBIN 25.6 pg (27.0-31.0); MEAN CORPUSCULAR HGB CONC 32.8 g/dL (33.0-37.0); MEAN PLATELET VOLUME 7.6 fL (7.2-11.7); MONO # 0.6 K/uL (0.0-0.8); MONO % 4.3 % (0.0-10.0); NEUT # 8.7 K/uL (1.8-7.0); NEUT % 65.4 % (50.0-75.0); NRBC % 0.1 % (0.0-2.0); RBC 4.33 Mil/uL (3.80-5.20); RED CELL DISTRIBUTION WIDTH 15.3 % (11.5-14.5); WHITE BLOOD COUNT 13.3 K/uL (4.8-10.8)
[2017-11-01 14:04] LABS: ALB/GLOB RATIO 0.8 (1.0-2.1); ALBUMIN 3.4 g/dL (3.5-5.0); ALT/SGPT 18 U/L (9-52); AST/SGOT 23 U/L (14-36); BLOOD UREA NITROGEN 10 mg/dL (7-17); CALCIUM 9.1 mg/dl (8.6-10.4); GFR AFRICAN-AMERICAN > 60; GFR NON-AFRICAN AMERICAN > 60
--- NOTE | 2017-11-01 15:27 | CP.PCM.PN ---
Subjective - Date & Time of Evaluation Date of Evaluation: 11/01/17 Time of Evaluation: 15:23 - Subjective Subjective: Podiatry progress note for Dr. Wall: 52 y/o female seen at bedside regarding bilateral heel ulcerations. Patient resting comfortably in bed in [facility]. Patient denies any other pedal complaints at this time. Multipodus boots are intact to bilateral lower extremities with dressings clean,dry,intact. She denies n/f/c/v/d/sob. No other pedal complains. Objective - Vital Signs/Intake and Output Vital Signs (last 24 hours): Temp Pulse Resp BP Pulse Ox 98.6 F 82 20 150/94 H 98 11/01/17 07:05 11/01/17 07:05 11/01/17 07:05 11/01/17 07:05 11/01/17 07:05 Intake and Output: 11/01/17 11/01/17 06:59 18:59 Intake Total 970 Output Total 1350 Balance -380 - Medications Medications: Current Medications Acetaminophen (Tylenol 325mg Tab) 650 mg PO Q6 PRN PRN Reason: Pain, Mild (1-3) Last Admin: 10/27/17 11:12 Dose: 650 mg Al Hydrox/Mg Hydrox/Simethicone (Maalox Plus 30 Ml) 30 ml PO PRN PRN PRN Reason: Heartburn Last Admin: 10/29/17 21:45 Dose: 30 ml Albuterol/Ipratropium (Duoneb 3 Mg/0.5 Mg (3 Ml) Ud) 3 ml IH RQ4 [facility] Last Admin: 11/01/17 13:44 Dose: Not Given Alprazolam (Xanax) 2 mg PO Q8H PRN PRN Reason: Anxiety Diphenhydramine HCl (Benadryl) 25 mg PO Q6 [facility] Last Admin: 11/01/17 12:40 Dose: 25 mg Docusate Sodium (Colace) 100 mg PO BID [facility] Last Admin: 11/01/17 11:07 Dose: 100 mg Enoxaparin Sodium (Lovenox) 40 mg SC DAILY [facility] Last Admin: 11/01/17 11:07 Dose: 40 mg Fluconazole (Diflucan) 150 mg PO ONCE ONE PRN Reason: Protocol Stop: 11/01/17 15:31 Piperacillin Sod/Tazobactam Sod (Zosyn 3.375 Gm Iv Premix) 3.375 gm in 50 mls @ 100 mls/hr IVPB Q6H KEN PRN Reason: Protocol Last Admin: 11/01/17 14:48 Dose: 100 mls/hr Magnesium Hydroxide (Milk Of Magnesia) 30 ml PO PRN PRN PRN Reason: Constipation Last Admin: 10/31/17 10:45 Dose: 30 ml Multivitamins (Hexavitamin) 1 tab PO DAILY [facility] Last Admin: 11/01/17 11:07 Dose: 1 tab Ondansetron HCl (Zofran Inj) 4 mg IVP Q8 PRN PRN Reason: Nausea/Vomiting Last Admin: 11/01/17 09:31 Dose: 4 mg Oxycodone HCl (Oxycodone Immediate Release Tab) 5 mg PO Q6 PRN PRN Reason: Pain, moderate (4-7) Last Admin: 11/01/17 08:46 Dose: 5 mg Oxycodone/Acetaminophen (Percocet 5/325 Mg Tab) 2 tab PO Q6 PRN PRN Reason: Pain, severe (8-10) Last Admin: 11/01/17 12:40 Dose: 2 tab Sennosides (Senokot Tab) 8.6 mg PO DAILY [facility] Last Admin: 11/01/17 11:06 Dose: 8.6 mg - Labs Labs: 11/01/17 13:28 11/01/17 13:28 PT 13.5 SECONDS (9.7-12.2) H 10/26/17 13:49 INR 1.2 10/26/17 13:49 APTT 39 SECONDS (21-34) H 10/26/17 13:49 - Constitutional Appears: Well, Non-toxic, No Acute Distress - Extremities Exam Additional comments: vasc: lightly palpable DP pulses b/l, nonpalpable PT pulses b/l, TG wnl, CFT < 3 sec to all digits neuro: grossly diminished derm: nonpitting edema noted to dorsum of foot b/l right lower extremity: superficial nonstageable ulceration noted to plantar/ posterior heel with necrotic base and fibrotic border, mild malodor, no active purulence, no active drainage, no ascending cellulitis left lower extremity: superficial nonstageable ulcerations to posterior heel with necrotic eschar and plantar rearfoot with granular base and fibrotic borders, no ascending cellulitis, no purulence, no active drainage ortho: pain on palpation to plantar heels bilaterally - Neurological Exam Neurological Exam: Alert, Awake, Oriented x3 - Psychiatric Exam Psychiatric exam: Normal Affect, Normal Mood Assessment and Plan - Assessment and Plan (Free Text) Assessment: 52 y/o female seen at bedside for bilateral unstageable heel ulcerations Plan: patient evaluated and chart reviewed discussed in detail with attending Dr. Wall labs and vitals reviewed; WBC 13.3, afebrile cont. IV abx as per ID; zosyn 3.375g q6h wound cx of bilateral feet obtained: R foot: MRSA, Enterobacter cloacae L foot: MRSA, enterobacter cloacae applied xeroform DSD, to bilateral feet multipodus boot applied to both feet cont. to wear boots in bed at all times for offloading heels X rays of bilateral feet show severe osteopenia, no acute signs of OM, no signs of periosteal reaction of calcaneus, soft tissue swelling noted at dorsal midfoot L>R podiatry will continue to monitor while patient remains in house
--- NOTE | 2017-11-01 17:17 | CP.PCM.PN ---
Subjective - Date & Time of Evaluation Date of Evaluation: 11/01/17 Time of Evaluation: 09:00 - Subjective Subjective: seen at bedside regarding bilateral heel ulcerations. Objective - Vital Signs/Intake and Output Vital Signs (last 24 hours): Temp Pulse Resp BP Pulse Ox 98.3 F 92 H 18 95/62 L 99 11/01/17 15:28 11/01/17 15:28 11/01/17 15:28 11/01/17 15:28 11/01/17 15:28 Intake and Output: 11/01/17 11/01/17 06:59 18:59 Intake Total 970 760 Output Total 1350 800 Balance -380 -40 - Medications Medications: Current Medications Acetaminophen (Tylenol 325mg Tab) 650 mg PO Q6 PRN PRN Reason: Pain, Mild (1-3) Last Admin: 10/27/17 11:12 Dose: 650 mg Al Hydrox/Mg Hydrox/Simethicone (Maalox Plus 30 Ml) 30 ml PO PRN PRN PRN Reason: Heartburn Last Admin: 10/29/17 21:45 Dose: 30 ml Albuterol/Ipratropium (Duoneb 3 Mg/0.5 Mg (3 Ml) Ud) 3 ml IH RQ4 [facility] Last Admin: 11/01/17 15:47 Dose: Not Given Alprazolam (Xanax) 2 mg PO Q8H PRN PRN Reason: Anxiety Diphenhydramine HCl (Benadryl) 25 mg PO Q6 [facility] Last Admin: 11/01/17 12:40 Dose: 25 mg Docusate Sodium (Colace) 100 mg PO BID [facility] Last Admin: 11/01/17 11:07 Dose: 100 mg Enoxaparin Sodium (Lovenox) 40 mg SC DAILY [facility] Last Admin: 11/01/17 11:07 Dose: 40 mg Piperacillin Sod/Tazobactam Sod (Zosyn 3.375 Gm Iv Premix) 3.375 gm in 50 mls @ 100 mls/hr IVPB Q6H [facility] PRN Reason: Protocol Last Admin: 11/01/17 14:48 Dose: 100 mls/hr Magnesium Hydroxide (Milk Of Magnesia) 30 ml PO PRN PRN PRN Reason: Constipation Last Admin: 10/31/17 10:45 Dose: 30 ml Multivitamins (Hexavitamin) 1 tab PO DAILY [facility] Last Admin: 11/01/17 11:07 Dose: 1 tab Ondansetron HCl (Zofran Inj) 4 mg IVP Q8 PRN PRN Reason: Nausea/Vomiting Last Admin: 11/01/17 09:31 Dose: 4 mg Oxycodone HCl (Oxycodone Immediate Release Tab) 5 mg PO Q6 PRN PRN Reason: Pain, moderate (4-7) Last Admin: 11/01/17 15:30 Dose: 5 mg Oxycodone/Acetaminophen (Percocet 5/325 Mg Tab) 2 tab PO Q6 PRN PRN Reason: Pain, severe (8-10) Last Admin: 11/01/17 12:40 Dose: 2 tab Sennosides (Senokot Tab) 8.6 mg PO DAILY [facility] Last Admin: 11/01/17 11:06 Dose: 8.6 mg - Labs Labs: 11/01/17 13:28 11/01/17 13:28 PT 13.5 SECONDS (9.7-12.2) H 10/26/17 13:49 INR 1.2 10/26/17 13:49 APTT 39 SECONDS (21-34) H 10/26/17 13:49 - Constitutional Appears: Non-toxic - Head Exam Head Exam: NORMOCEPHALIC - Eye Exam Eye Exam: absent: Scleral icterus - ENT Exam ENT Exam: Normal External Ear Exam - Neck Exam Neck Exam: absent: Lymphadenopathy - Respiratory Exam Respiratory Exam: Decreased Breath Sounds - Cardiovascular Exam Cardiovascular Exam: REGULAR RHYTHM - GI/Abdominal Exam GI & Abdominal Exam: Distended, Soft - Rectal Exam Rectal Exam: Deferred - Exam Exam: NORMAL INSPECTION Assessment and Plan (1) Chronic wound of extremity Status: Acute (2) Leg edema Status: Acute (3) Paraplegia Status: Acute (4) UTI (urinary tract infection) Status: Acute
[2017-11-01] MEDS: Linezolid 600 mg in D5W 300 ml 600 MG/300 ML BAG IVPB SCH (21:57)
[2017-11-02] MEDS: Alum-Mag Hydrox-Simethicone Susp (30 mL) PO PRN ×2 (00:38→08:30)
[2017-11-02] MEDS: Oxycodone/Acetaminophen 5/325 mg Tab PO PRN ×3 (01:31→16:06)
[2017-11-02] MEDS: Albuterol-Ipratrop 3 mg / 0.5 (3 ml) UD IH SCH ×5 (03:23→20:28)
[2017-11-02] MEDS: oxyCODONE 5 mg Immediate Release Tab PO PRN ×2 (06:23→13:10)
[2017-11-02 06:55] LABS: BASO # 0.1 K/uL (0.0-0.2); BASO % 0.5 % (0.0-2.0); EOS # 0.4 K/uL (0.0-0.7); EOS % 3.1 % (0.0-4.0); HEMOGLOBIN 10.4 g/dL (11.0-16.0); LYMPH % 29.3 % (20.0-40.0); MEAN CELL VOLUME 77.6 fL (81.0-99.0); MEAN CORPUSCULAR HEMOGLOBIN 25.3 pg (27.0-31.0); MEAN CORPUSCULAR HGB CONC 32.6 g/dL (33.0-37.0); MEAN PLATELET VOLUME 7.5 fL (7.2-11.7); MONO # 0.7 K/uL (0.0-0.8); MONO % 4.8 % (0.0-10.0); NEUT # 8.5 K/uL (1.8-7.0); NEUT % 62.3 % (50.0-75.0); RBC 4.11 Mil/uL (3.80-5.20); RED CELL DISTRIBUTION WIDTH 15.5 % (11.5-14.5); WHITE BLOOD COUNT 13.6 K/uL (4.8-10.8)
[2017-11-02 07:15] LABS: ALB/GLOB RATIO 0.8 (1.0-2.1); ALBUMIN 3.2 g/dL (3.5-5.0); ALT/SGPT 18 U/L (9-52); AST/SGOT 22 U/L (14-36); BLOOD UREA NITROGEN 12 mg/dL (7-17); CALCIUM 8.7 mg/dl (8.6-10.4); GFR AFRICAN-AMERICAN > 60; GFR NON-AFRICAN AMERICAN > 60
[2017-11-02] MEDS: Enoxaparin 40 mg Syringe SC SCH (09:30)
[2017-11-02] MEDS: Multiple Vitamins Tab PO SCH (09:30)
[2017-11-02] MEDS: Linezolid 600 mg in D5W 300 ml 600 MG/300 ML BAG IVPB SCH ×2 (10:43→21:53)
--- NOTE | 2017-11-02 19:15 | CP.PCM.PN ---
Subjective - Date & Time of Evaluation Date of Evaluation: 11/02/17 Time of Evaluation: 10:00 - Subjective Subjective: Podiatry progress note for Dr. Wall: 52 y/o female seen at bedside regarding bilateral heel ulcerations. Patient resting comfortably in bed in [facility]. Patient denies any pain to her feet today. Dressings clean/dry/intact with multipodus boots present. No new pedal complaints. Patient admits to general malaise, chills. Objective - Vital Signs/Intake and Output Vital Signs (last 24 hours): Temp Pulse Resp BP Pulse Ox 98.7 F 85 20 104/68 98 11/02/17 15:00 11/02/17 15:00 11/02/17 15:00 11/02/17 15:00 11/02/17 15:00 Intake and Output: 11/02/17 11/03/17 18:59 06:59 Intake Total 442 Output Total 1100 Balance -658 - Medications Medications: Current Medications Acetaminophen (Tylenol 325mg Tab) 650 mg PO Q6 PRN PRN Reason: Pain, Mild (1-3) Last Admin: 10/27/17 11:12 Dose: 650 mg Al Hydrox/Mg Hydrox/Simethicone (Maalox Plus 30 Ml) 30 ml PO PRN PRN PRN Reason: Heartburn Last Admin: 11/02/17 08:30 Dose: 30 ml Albuterol/Ipratropium (Duoneb 3 Mg/0.5 Mg (3 Ml) Ud) 3 ml IH RQ4 [facility] Last Admin: 11/02/17 16:32 Dose: Not Given Alprazolam (Xanax) 2 mg PO Q8H PRN PRN Reason: Anxiety Diphenhydramine HCl (Benadryl) 25 mg PO Q6 [facility] Last Admin: 11/02/17 17:30 Dose: 25 mg Docusate Sodium (Colace) 100 mg PO BID [facility] Last Admin: 11/02/17 17:30 Dose: 100 mg Enoxaparin Sodium (Lovenox) 40 mg SC DAILY [facility] Last Admin: 11/02/17 09:30 Dose: 40 mg Linezolid (Zyvox 600mg/300ml D5w) 600 mg in 300 mls @ 200 mls/hr IVPB Q12H [facility] PRN Reason: Protocol Last Admin: 11/02/17 10:43 Dose: 200 mls/hr Gentamicin Sulfate 80 mg/ (Sodium Chloride) 102 mls @ 102 mls/hr IVPB Q12H KEN PRN Reason: Protocol Last Admin: 11/02/17 17:53 Dose: 102 mls/hr Magnesium Hydroxide (Milk Of Magnesia) 30 ml PO PRN PRN PRN Reason: Constipation Last Admin: 10/31/17 10:45 Dose: 30 ml Multivitamins (Hexavitamin) 1 tab PO DAILY [facility] Last Admin: 11/02/17 09:30 Dose: 1 tab Ondansetron HCl (Zofran Inj) 4 mg IVP Q8 PRN PRN Reason: Nausea/Vomiting Last Admin: 11/02/17 16:58 Dose: 4 mg Oxycodone HCl (Oxycodone Immediate Release Tab) 5 mg PO Q6 PRN PRN Reason: Pain, moderate (4-7) Last Admin: 11/02/17 13:10 Dose: 5 mg Oxycodone/Acetaminophen (Percocet 5/325 Mg Tab) 2 tab PO Q6 PRN PRN Reason: Pain, severe (8-10) Last Admin: 11/02/17 16:06 Dose: 2 tab Sennosides (Senokot Tab) 8.6 mg PO DAILY [facility] Last Admin: 11/02/17 09:30 Dose: 8.6 mg - Labs Labs: 11/02/17 06:49 11/02/17 06:49 PT 13.5 SECONDS (9.7-12.2) H 10/26/17 13:49 INR 1.2 10/26/17 13:49 APTT 39 SECONDS (21-34) H 10/26/17 13:49 - Constitutional Appears: Well, Non-toxic, No Acute Distress - Extremities Exam Additional comments: vasc: lightly palpable DP pulses b/l, nonpalpable PT pulses b/l, TG wnl, CFT < 3 sec to all digits neuro: grossly diminished derm: nonpitting edema noted to dorsum of foot b/l right lower extremity: superficial nonstageable ulceration noted to plantar/ posterior heel with necrotic base and fibrotic border, mild malodor, no active purulence, no active drainage, no ascending cellulitis left lower extremity: superficial nonstageable ulcerations to posterior heel with necrotic eschar and plantar rearfoot with granular base and fibrotic borders, no ascending cellulitis, no purulence, no active drainage ortho: pain on palpation to plantar heels bilaterally - Neurological Exam Neurological Exam: Alert, Awake, Oriented x3 - Psychiatric Exam Psychiatric exam: Normal Affect, Normal Mood Assessment and Plan - Assessment and Plan (Free Text) Assessment: 52 y/o female seen at bedside for bilateral unstageable heel ulcerations Plan: Patient seen and evaluated alongside attending, Dr. Wall labs and vitals reviewed; WBC 13.6, afebrile cont. IV abx as per ID; gentamicin, linezolid wound cx of bilateral feet obtained: R foot: MRSA, Enterobacter cloacae L foot: MRSA, enterobacter cloacae applied xeroform DSD, to bilateral feet cont. to wear boots in bed at all times for offloading heels X rays of bilateral feet show severe osteopenia, no acute signs of OM, no signs of periosteal reaction of calcaneus, soft tissue swelling noted at dorsal midfoot L>R f/u bone scan Podiatry will continue to follow
[2017-11-03] MEDS: Albuterol-Ipratrop 3 mg / 0.5 (3 ml) UD IH SCH (00:05)
[2017-11-03 08:05] LABS: MEAN CELL VOLUME 77.5 fL (81.0-99.0); MEAN CORPUSCULAR HEMOGLOBIN 25.8 pg (27.0-31.0); MEAN CORPUSCULAR HGB CONC 33.3 g/dL (33.0-37.0); MEAN PLATELET VOLUME 7.5 fL (7.2-11.7); RBC 4.28 Mil/uL (3.80-5.20); RED CELL DISTRIBUTION WIDTH 15.5 % (11.5-14.5); WHITE BLOOD COUNT 12.7 K/uL (4.8-10.8)
[2017-11-03 08:22] LABS: BLOOD UREA NITROGEN 13 mg/dL (7-17); CALCIUM 8.6 mg/dl (8.6-10.4); GFR AFRICAN-AMERICAN > 60; GFR NON-AFRICAN AMERICAN > 60
[2017-11-03] MEDS: Oxycodone/Acetaminophen 5/325 mg Tab PO PRN ×2 (08:35→19:04)
[2017-11-03] MEDS: Enoxaparin 40 mg Syringe SC SCH (09:14)
[2017-11-03] MEDS: Multiple Vitamins Tab PO SCH (09:14)
[2017-11-03] MEDS: Linezolid 600 mg in D5W 300 ml 600 MG/300 ML BAG IVPB SCH ×2 (09:20→21:49)
--- NOTE | 2017-11-03 10:19 | CP.PCM.PN ---
Subjective - Date & Time of Evaluation Date of Evaluation: 11/03/17 Time of Evaluation: 10:19 - Subjective Subjective: Podiatry progress note for Dr. Wall: 52 y/o female seen at bedside regarding bilateral heel ulcerations. Patient resting comfortably, NAD. No acute events overnight. Denies any pain to feet, no new pedal complaints. Dressings to bilateral LE remain clean/dry/intact with multipodus boots present. Reports continued chills, malaise. Objective - Vital Signs/Intake and Output Vital Signs (last 24 hours): Temp Pulse Resp BP Pulse Ox 98.6 F 67 20 130/88 96 11/03/17 07:00 11/03/17 07:00 11/03/17 07:00 11/03/17 07:00 11/03/17 07:00 Intake and Output: 11/03/17 11/03/17 06:59 18:59 Intake Total 650 Output Total 700 Balance -50 - Medications Medications: Current Medications Acetaminophen (Tylenol 325mg Tab) 650 mg PO Q6 PRN PRN Reason: Pain, Mild (1-3) Last Admin: 10/27/17 11:12 Dose: 650 mg Al Hydrox/Mg Hydrox/Simethicone (Maalox Plus 30 Ml) 30 ml PO PRN PRN PRN Reason: Heartburn Last Admin: 11/02/17 08:30 Dose: 30 ml Diphenhydramine HCl (Benadryl) 25 mg PO Q6 [facility] Last Admin: 11/03/17 06:15 Dose: 25 mg Docusate Sodium (Colace) 100 mg PO BID [facility] Last Admin: 11/03/17 09:14 Dose: 100 mg Enoxaparin Sodium (Lovenox) 40 mg SC DAILY [facility] Last Admin: 11/03/17 09:14 Dose: 40 mg Hydrocortisone (Cortizone 1% Oint) 1 gm TOP BID [facility] Last Admin: 11/03/17 09:20 Dose: 1 applic Linezolid (Zyvox 600mg/300ml D5w) 600 mg in 300 mls @ 200 mls/hr IVPB Q12H [facility] PRN Reason: Protocol Last Admin: 11/03/17 09:20 Dose: 200 mls/hr Gentamicin Sulfate 80 mg/ (Sodium Chloride) 102 mls @ 102 mls/hr IVPB Q12H [facility] PRN Reason: Protocol Last Admin: 11/03/17 06:15 Dose: 102 mls/hr Magnesium Hydroxide (Milk Of Magnesia) 30 ml PO PRN PRN PRN Reason: Constipation Last Admin: 10/31/17 10:45 Dose: 30 ml Multivitamins (Hexavitamin) 1 tab PO DAILY [facility] Last Admin: 11/03/17 09:14 Dose: 1 tab Ondansetron HCl (Zofran Inj) 4 mg IVP Q8 PRN PRN Reason: Nausea/Vomiting Last Admin: 11/03/17 09:19 Dose: 4 mg Oxycodone HCl (Oxycodone Immediate Release Tab) 5 mg PO Q6 PRN PRN Reason: Pain, moderate (4-7) Last Admin: 11/02/17 13:10 Dose: 5 mg Oxycodone/Acetaminophen (Percocet 5/325 Mg Tab) 2 tab PO Q6 PRN PRN Reason: Pain, severe (8-10) Last Admin: 11/03/17 08:35 Dose: 2 tab Sennosides (Senokot Tab) 8.6 mg PO DAILY [facility] Last Admin: 11/03/17 09:14 Dose: 8.6 mg - Labs Labs: 11/03/17 07:58 11/03/17 07:58 PT 13.5 SECONDS (9.7-12.2) H 10/26/17 13:49 INR 1.2 10/26/17 13:49 APTT 39 SECONDS (21-34) H 10/26/17 13:49 - Constitutional Appears: Well, Non-toxic, No Acute Distress - Extremities Exam Additional comments: vasc: lightly palpable DP pulses b/l, nonpalpable PT pulses b/l, TG wnl, CFT < 3 sec to all digits neuro: gross sensation absent derm: nonpitting edema noted to dorsum of foot b/l -right lower extremity: superficial nonstageable ulceration noted to plantar/ posterior heel with necrotic base and fibrotic border, mild malodor, no active purulence, minimal serosanguinous drainage, no ascending cellulitis -left lower extremity: superficial nonstageable ulcerations to posterior heel with necrotic eschar and plantar rearfoot with granular base and fibrotic borders, no ascending cellulitis, no purulence, no active drainage ortho: no pain on palpation to plantar heels bilaterally - Neurological Exam Neurological Exam: Alert, Awake, Oriented x3 - Psychiatric Exam Psychiatric exam: Normal Affect, Normal Mood Assessment and Plan - Assessment and Plan (Free Text) Assessment: 52 y/o female seen at bedside for bilateral unstageable heel ulcerations Plan: Patient seen and evaluated Discussed with attending, Dr. Wall Afebrile, WBC trending downwards 12.7 X rays of bilateral feet show severe osteopenia, no acute signs of OM, no signs of periosteal reaction of calcaneus, soft tissue swelling noted at dorsal midfoot L>R f/u bone scan IV abx as per ID; gentamicin, linezolid R foot WCx: MRSA, Enterobacter cloacae L foot: MRSA, enterobacter cloacae Continue local wound care - xeroform, DSD Continue multipodus boots at all times in bed Podiatry will continue to follow
[2017-11-03] MEDS: oxyCODONE 5 mg Immediate Release Tab PO PRN (13:30)
--- NOTE | 2017-11-03 17:23 | CP.PCM.PN ---
Subjective - Date & Time of Evaluation Date of Evaluation: 11/03/17 Time of Evaluation: 08:00 - Subjective Subjective: events noted IV rx in progress await genta levels Objective - Vital Signs/Intake and Output Vital Signs (last 24 hours): Temp Pulse Resp BP Pulse Ox 98.8 F 70 20 123/87 98 11/03/17 15:00 11/03/17 15:00 11/03/17 15:00 11/03/17 15:00 11/03/17 15:00 Intake and Output: 11/03/17 11/03/17 06:59 18:59 Intake Total 650 Output Total 700 1600 Balance -50 -1600 - Medications Medications: Current Medications Acetaminophen (Tylenol 325mg Tab) 650 mg PO Q6 PRN PRN Reason: Pain, Mild (1-3) Last Admin: 10/27/17 11:12 Dose: 650 mg Al Hydrox/Mg Hydrox/Simethicone (Maalox Plus 30 Ml) 30 ml PO PRN PRN PRN Reason: Heartburn Last Admin: 11/02/17 08:30 Dose: 30 ml Diphenhydramine HCl (Benadryl) 25 mg PO Q6 [facility] Last Admin: 11/03/17 13:00 Dose: 25 mg Docusate Sodium (Colace) 100 mg PO BID [facility] Last Admin: 11/03/17 09:14 Dose: 100 mg Hydrocortisone (Cortizone 1% Oint) 1 gm TOP BID [facility] Last Admin: 11/03/17 09:20 Dose: 1 applic Linezolid (Zyvox 600mg/300ml D5w) 600 mg in 300 mls @ 200 mls/hr IVPB Q12H [facility] PRN Reason: Protocol Last Admin: 11/03/17 09:20 Dose: 200 mls/hr Gentamicin Sulfate 80 mg/ (Sodium Chloride) 102 mls @ 102 mls/hr IVPB Q12H [facility] PRN Reason: Protocol Last Admin: 11/03/17 06:15 Dose: 102 mls/hr Magnesium Hydroxide (Milk Of Magnesia) 30 ml PO PRN PRN PRN Reason: Constipation Last Admin: 10/31/17 10:45 Dose: 30 ml Multivitamins (Hexavitamin) 1 tab PO DAILY [facility] Last Admin: 11/03/17 09:14 Dose: 1 tab Ondansetron HCl (Zofran Inj) 4 mg IVP Q8 PRN PRN Reason: Nausea/Vomiting Last Admin: 11/03/17 09:19 Dose: 4 mg Oxycodone HCl (Oxycodone Immediate Release Tab) 5 mg PO Q6 PRN PRN Reason: Pain, moderate (4-7) Last Admin: 11/03/17 13:30 Dose: 5 mg Oxycodone/Acetaminophen (Percocet 5/325 Mg Tab) 2 tab PO Q6 PRN PRN Reason: Pain, severe (8-10) Last Admin: 11/03/17 08:35 Dose: 2 tab Sennosides (Senokot Tab) 8.6 mg PO DAILY [facility] Last Admin: 11/03/17 09:14 Dose: 8.6 mg - Labs Labs: 11/03/17 07:58 11/03/17 07:58 PT 13.5 SECONDS (9.7-12.2) H 10/26/17 13:49 INR 1.2 10/26/17 13:49 APTT 39 SECONDS (21-34) H 10/26/17 13:49 - Constitutional Appears: Non-toxic, Chronically Ill - Head Exam Head Exam: NORMOCEPHALIC - Eye Exam Eye Exam: PERRL - ENT Exam ENT Exam: Mucous Membranes Dry - Neck Exam Neck Exam: absent: Lymphadenopathy - Respiratory Exam Respiratory Exam: Decreased Breath Sounds - Cardiovascular Exam Cardiovascular Exam: REGULAR RHYTHM - GI/Abdominal Exam GI & Abdominal Exam: Distended, Soft - Rectal Exam Rectal Exam: Deferred - Extremities Exam Additional comments: vasc: lightly palpable DP pulses b/l, nonpalpable PT pulses b/l, TG wnl, CFT < 3 sec to all digits neuro: grossly diminished derm: nonpitting edema noted to dorsum of foot b/l right lower extremity: superficial nonstageable ulceration noted to plantar/ posterior heel with necrotic base and fibrotic border, mild malodor, no active purulence, no active drainage, no ascending cellulitis left lower extremity: superficial nonstageable ulcerations to posterior heel with necrotic eschar and plantar rearfoot with granular base and fibrotic borders, no ascending cellulitis, no purulence, no active drainage ortho: pain on palpation to plantar heels bilaterally - Back Exam Back Exam: absent: CVA tenderness (L), CVA tenderness (R) - Neurological Exam Neurological Exam: Alert, Awake Neuro motor strength exam: Left Lower Extremity: 2/, Right Lower Extremity: 2/1 - Psychiatric Exam Psychiatric exam: Depressed - Skin Skin Exam: Dry Assessment and Plan (1) Chronic wound of extremity Status: Acute (2) Leg edema Status: Acute (3) Paraplegia Status: Acute (4) UTI (urinary tract infection) Status: Acute - Assessment and Plan (Free Text) Assessment: wounds improving uti improving no OM
[2017-11-04] MEDS: Oxycodone/Acetaminophen 5/325 mg Tab PO PRN (05:33)
[2017-11-04 07:19] LABS: BASO # 0.1 K/uL (0.0-0.2); BASO % 0.5 % (0.0-2.0); EOS # 0.4 K/uL (0.0-0.7); EOS % 2.6 % (0.0-4.0); HEMOGLOBIN 11.5 g/dL (11.0-16.0); LYMPH # 3.8 K/uL (1.0-4.3); LYMPH % 24.6 % (20.0-40.0); MEAN CELL VOLUME 77.9 fL (81.0-99.0); MEAN CORPUSCULAR HEMOGLOBIN 25.4 pg (27.0-31.0); MEAN CORPUSCULAR HGB CONC 32.6 g/dL (33.0-37.0); MEAN PLATELET VOLUME 7.7 fL (7.2-11.7); MONO # 0.8 K/uL (0.0-0.8); MONO % 5.3 % (0.0-10.0); NEUT # 10.2 K/uL (1.8-7.0); RBC 4.54 Mil/uL (3.80-5.20); RED CELL DISTRIBUTION WIDTH 15.5 % (11.5-14.5); WHITE BLOOD COUNT 15.3 K/uL (4.8-10.8)
[2017-11-04 07:41] LABS: VANCOMYCIN TROUGH < 5.0 ug/mL (5.0-10.0)
[2017-11-04 07:46] LABS: ALB/GLOB RATIO 0.8 (1.0-2.1); ALBUMIN 3.6 g/dL (3.5-5.0); ALT/SGPT 11 U/L (9-52); AST/SGOT 22 U/L (14-36); BLOOD UREA NITROGEN 9 mg/dL (7-17); CALCIUM 8.8 mg/dl (8.6-10.4); GFR AFRICAN-AMERICAN > 60; GFR NON-AFRICAN AMERICAN > 60
--- NOTE | 2017-11-04 08:43 | PN ---
DATE: 11/02/2017 SUBJECTIVE: IV antibiotics. . Chelsea Dodd MD [facility] # [id number]
[2017-11-04] MEDS: Multiple Vitamins Tab PO SCH (09:02)
[2017-11-04] MEDS: Enoxaparin 40 mg Syringe SC SCH (09:02)
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
[2017-11-04] MEDS: oxyCODONE 5 mg Immediate Release Tab PO PRN ×3 (10:44→23:07)
[2017-11-04] MEDS: Linezolid 600 mg in D5W 300 ml 600 MG/300 ML BAG IVPB SCH ×2 (10:45→22:01)
[2017-11-04 16:35] VITALS: RESP 20
--- NOTE | 2017-11-04 16:54 | NM ---
PROCEDURE: Three-phase y Bone Scan HISTORY: r/o osteo COMPARISON: 10/29/2017 bilateral foot radiographs TECHNIQUE: Following administration of 21.6 miCu of Tc MDP multiplanar whole body images were obtained. FINDINGS: Flow component: Increased flow to the left tarsal bones Blood pool component: Accumulation of radionuclide left tarsal bones probably 2nd cuneiform. Accumulation of radionuclide left knee Delayed images at 3:00: Retention of radionuclide metatarsals left foot Retention of radionuclide left knee. Increased uptake right calcaneus. Other findings: None. IMPRESSION: Positive 3 phase bone scan for acute osseous process the area of interest appears to represent the left 2nd cuneiform. This does not appear be related to hardware distal tibia and associated postoperative findings related to fusion.
--- NOTE | 2017-11-04 21:16 | CP.PCM.PN ---
Subjective - Date & Time of Evaluation Date of Evaluation: 11/04/17 Time of Evaluation: 09:00 - Subjective Subjective: Podiatry progress note for Dr. Wall: 52 y/o female seen at bedside regarding bilateral heel ulcerations. Patient resting comfortably, NAD. No acute events overnight. Denies any pain to feet, no new pedal complaints. Dressings to bilateral LE remain clean/dry/intact with multipodus boots present. Pt in good spirts, responsive and reports no overnight chills. Objective - Vital Signs/Intake and Output Vital Signs (last 24 hours): Temp Pulse Resp BP Pulse Ox 98.6 F 90 20 127/89 100 11/04/17 15:10 11/04/17 15:10 11/04/17 15:10 11/04/17 08:12 11/04/17 15:10 Intake and Output: 11/04/17 11/05/17 18:59 06:59 Output Total 300 Balance -300 - Medications Medications: Current Medications Acetaminophen (Tylenol 325mg Tab) 650 mg PO Q6 PRN PRN Reason: Pain, Mild (1-3) Last Admin: 10/27/17 11:12 Dose: 650 mg Al Hydrox/Mg Hydrox/Simethicone (Maalox Plus 30 Ml) 30 ml PO PRN PRN PRN Reason: Heartburn Last Admin: 11/02/17 08:30 Dose: 30 ml Diphenhydramine HCl (Benadryl) 25 mg PO Q6 [facility] Last Admin: 11/04/17 17:59 Dose: 25 mg Docusate Sodium (Colace) 100 mg PO BID [facility] Last Admin: 11/04/17 17:59 Dose: 100 mg Enoxaparin Sodium (Lovenox) 40 mg SC DAILY [facility] Last Admin: 11/04/17 09:02 Dose: 40 mg Hydrocortisone (Cortizone 1% Oint) 1 gm TOP BID [facility] Last Admin: 11/04/17 17:59 Dose: 1 applic Linezolid (Zyvox 600mg/300ml D5w) 600 mg in 300 mls @ 200 mls/hr IVPB Q12H KEN PRN Reason: Protocol Last Admin: 11/04/17 10:45 Dose: 200 mls/hr Gentamicin Sulfate 80 mg/ (Sodium Chloride) 102 mls @ 102 mls/hr IVPB Q12H KEN PRN Reason: Protocol Last Admin: 11/04/17 17:59 Dose: 102 mls/hr Magnesium Hydroxide (Milk Of Magnesia) 30 ml PO PRN PRN PRN Reason: Constipation Last Admin: 10/31/17 10:45 Dose: 30 ml Multivitamins (Hexavitamin) 1 tab PO DAILY [facility] Last Admin: 11/04/17 09:02 Dose: 1 tab Ondansetron HCl (Zofran Inj) 4 mg IVP Q8 PRN PRN Reason: Nausea/Vomiting Last Admin: 11/04/17 05:31 Dose: 4 mg Oxycodone HCl (Oxycodone Immediate Release Tab) 5 mg PO Q6 PRN PRN Reason: Pain, moderate (4-7) Last Admin: 11/04/17 16:59 Dose: 5 mg Sennosides (Senokot Tab) 8.6 mg PO DAILY [facility] Last Admin: 11/04/17 09:03 Dose: 8.6 mg - Labs Labs: 11/04/17 07:12 11/04/17 07:12 PT 13.5 SECONDS (9.7-12.2) H 10/26/17 13:49 INR 1.2 10/26/17 13:49 APTT 39 SECONDS (21-34) H 10/26/17 13:49 - Constitutional Appears: Well, Non-toxic, No Acute Distress - Extremities Exam Additional comments: vasc: lightly palpable DP pulses b/l, nonpalpable PT pulses b/l, TG wnl, CFT < 3 sec to all digits neuro: gross sensation absent derm: non-pitting edema noted to dorsum of foot b/l -right lower extremity: superficial ulceration noted to plantar/posterior heel with Fibrogranular base. and fibrotic border, mild malodor, no active purulence , minimal serosanguinous drainage, no ascending cellulitis -left lower extremity: superficial fibrogranular ulceration to posterior heel with necrotic eschar and plantar rearfoot with granular base and fibrotic borders, no ascending cellulitis, no purulence, no active drainage ortho: no pain on palpation to plantar heels bilaterally - Neurological Exam Neurological Exam: Alert, Awake, Oriented x3 - Psychiatric Exam Psychiatric exam: Normal Affect, Normal Mood Assessment and Plan - Assessment and Plan (Free Text) Assessment: 52 y/o female seen at bedside for bilateral heel ulcerations Plan: Patient seen and evaluated with attending, Dr. Wall, present. Chart, labs, and vitals reviewed. Afebrile, WBC=15.3 trending upward from 12.7 X rays of bilateral feet show severe osteopenia, no acute signs of OM, no signs of periosteal reaction of calcaneus, soft tissue swelling noted at dorsal midfoot L>R Bone scan results show: Left foot cuneiform region 3 phase increased uptake and Right calcaneal delayed phase uptake. IV abx as per ID; gentamicin, linezolid R foot WCx: MRSA, Enterobacter cloacae L foot: MRSA, enterobacter cloacae Continue local wound care - xeroform, DSD Continue multipodus boots at all times in bed Podiatry will continue to follow
[2017-11-05 06:44] LABS: BASO # 0.1 K/uL (0.0-0.2); BASO % 0.4 % (0.0-2.0); EOS # 0.4 K/uL (0.0-0.7); EOS % 3.2 % (0.0-4.0); HEMOGLOBIN 10.6 g/dL (11.0-16.0); LYMPH # 4.2 K/uL (1.0-4.3); LYMPH % 30.8 % (20.0-40.0); MEAN CELL VOLUME 77.5 fL (81.0-99.0); MEAN CORPUSCULAR HEMOGLOBIN 25.5 pg (27.0-31.0); MEAN CORPUSCULAR HGB CONC 32.9 g/dL (33.0-37.0); MEAN PLATELET VOLUME 7.4 fL (7.2-11.7); MONO # 0.7 K/uL (0.0-0.8); MONO % 5.4 % (0.0-10.0); NEUT # 8.3 K/uL (1.8-7.0); NEUT % 60.2 % (50.0-75.0); RBC 4.17 Mil/uL (3.80-5.20); RED CELL DISTRIBUTION WIDTH 15.7 % (11.5-14.5); WHITE BLOOD COUNT 13.7 K/uL (4.8-10.8)
[2017-11-05 06:50] LABS: ALB/GLOB RATIO 0.8 (1.0-2.1); ALBUMIN 3.3 g/dL (3.5-5.0); ALT/SGPT 10 U/L (9-52); AST/SGOT 28 U/L (14-36); BLOOD UREA NITROGEN 12 mg/dL (7-17); CALCIUM 8.4 mg/dl (8.6-10.4); GFR AFRICAN-AMERICAN > 60; GFR NON-AFRICAN AMERICAN > 60
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
[2017-11-05] MEDS: Enoxaparin 40 mg Syringe SC SCH (10:36)
[2017-11-05] MEDS: Linezolid 600 mg in D5W 300 ml 600 MG/300 ML BAG IVPB SCH (10:36)
[2017-11-05] MEDS: Multiple Vitamins Tab PO SCH (10:37)
[2017-11-05] MEDS: oxyCODONE 5 mg Immediate Release Tab PO PRN (10:40)
[2017-11-05 15:37] VITALS: BP 112/65; PULSE 81; TEMP 98.2; O2SAT 98
[2017-11-07 12:34] LABS: ALBUMIN (PEP) 3.1 g/dL (3.8-4.8); ALPHA-1-GLOBULIN (PEP) 0.4 g/dL (0.2-0.3)
--- NOTE | 2017-11-15 07:40 | DS ---
The patient was admitted to the hospital with complaint of sepsis, UTI. The patient denies any antibiotics, supportive care. The patient was transferred to [facility]. Chelsea Dodd MD
== END 2017-11-05 17:35 | DRG 872 ==
LOC: C.ER 12:24 → C.9E 15:39 → C.3T 22:08 → C.5S 10-31 13:35
PROVIDERS: ADMIT Internal Medicine Pulmonary Disease; ATTEND Internal Medicine Pulmonary Disease
DX: A41.9 Sepsis, unspecified organism (principal); L97.429 Non-pressure chronic ulcer of left heel and midfoot with unspecified severity; G82.20 Paraplegia, unspecified; N39.0 Urinary tract infection, site not specified; L03.90 Cellulitis, unspecified; L97.419 Non-pressure chronic ulcer of right heel and midfoot with unspecified severity; L89.229 Pressure ulcer of left hip, unspecified stage; K59.00 Constipation, unspecified; F41.9 Anxiety disorder, unspecified; F14.10 Cocaine abuse, uncomplicated; Z93.59 Other cystostomy status; N31.9 Neuromuscular dysfunction of bladder, unspecified; N18.9 Chronic kidney disease, unspecified

== ENCOUNTER 2018-06-18 17:20 | Inpatient (IN) | payer MEDICARE ==
[2018-06-18 17:20] VITALS: BMI 27.4
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
[2018-06-18] MEDS ORDERED: Morphine 4 MG/ML VIAL ONE (19:35)
[2018-06-18 19:51] LABS: BASO # 0.1 K/uL (0.0-0.2); BASO % 0.7 % (0.0-2.0); EOS # 0.4 K/uL (0.0-0.7); EOS % 2.1 % (0.0-4.0); LYMPH # 5.9 K/uL (1.0-4.3); LYMPH % 33.2 % (20.0-40.0); MEAN CELL VOLUME 79.4 fL (81.0-99.0); MEAN CORPUSCULAR HGB CONC 32.7 g/dL (33.0-37.0); MONO % 5.4 % (0.0-10.0); NEUT # 10.4 K/uL (1.8-7.0); NEUT % 58.6 % (50.0-75.0); NRBC % 0.1 % (0.0-2.0); RBC 5.73 Mil/uL (3.80-5.20); RED CELL DISTRIBUTION WIDTH 16.5 % (11.5-14.5); WHITE BLOOD COUNT 17.7 K/uL (4.8-10.8)
[2018-06-18 19:52] LABS: HEMOGLOBIN 14.9 g/dL (11.0-16.0)
[2018-06-18 20:00] LABS: PROTHROMBIN TIME 10.8 SECONDS (9.7-12.2)
[2018-06-18 20:02] LABS: ALB/GLOB RATIO 1.2 (1.0-2.1); ALBUMIN 4.6 g/dL (3.5-5.0); ALT/SGPT 13 U/L (9-52); AST/SGOT 24 U/L (14-36); BLOOD UREA NITROGEN 9 mg/dL (7-17); CALCIUM 9.4 mg/dl (8.6-10.4); GFR NON-AFRICAN AMERICAN > 60; LIPASE 149 U/L (23-300)
[2018-06-18] MEDS ORDERED: Iodixanol 320 MG/ML 100 ML BOTTLE IV ONE (21:08)
[2018-06-18 22:52] LABS: SQUAMOUS EPITHIAL 1 /hpf (0-5); URINE BACTERIA MOD (<OCC); URINE BILIRUBIN NEGATIVE (NEGATIVE); URINE BLOOD 3+ (NEGATIVE); URINE CLARITY Hazy (Clear); URINE COLOR Yellow (YELLOW); URINE GLUCOSE (UA) NORMAL (Normal); URINE LEUKOCYTE ESTERASE 2+ Leu/uL (Negative); URINE PROTEIN 1+ mg/dL (NEGATIVE); URINE UROBILINOGEN NORMAL mg/dL (0.2-1.0)
[2018-06-18] MEDS ORDERED: Piperacillin/Tazobact 3.375 GM in Sodium Chloride 100 ML IVPB SCH (23:00)
[2018-06-18] MEDS ORDERED: Dextrose 5%/0.45% NS 1,000 ML IV ONE (23:13)
[2018-06-18] MEDS ORDERED: Piperacillin/Tazobact 3.375 gm 100 ML IVPB ONE (23:13)
[2018-06-18] MEDS ORDERED: DiphenhydrAMINE 50 mg/ml Inj IVP STA (23:35)
[2018-06-18] MEDS ORDERED: DiphenhydrAMINE 50 mg/ml Inj ONE (23:36)
[2018-06-18] MEDS: Dextrose 5%/0.45% NS 1,000 ML IV SCH (23:41)
[2018-06-19] MEDS ORDERED: Oxycodone/Acetaminophen 5/325 mg Tab ONE (01:32)
[2018-06-19] MEDS: Oxycodone/Acetaminophen 5/325 mg Tab PO PRN (01:37)
[2018-06-19] MEDS ORDERED: DiphenhydrAMINE 50 mg/ml Inj ONE (05:37)
[2018-06-19] MEDS ORDERED: DiphenhydrAMINE 50 mg/ml Inj IVP STA (05:45)
--- NOTE | 2018-06-19 08:22 | RAD ---
Date of service: 03/30/2011 06/18/2018 PROCEDURE: Left Foot Radiographs. HISTORY: fall/pain COMPARISON: X-rays without report March 30 2011 FINDINGS: BONES: Generalized osteopenia. Diffuse joint space narrowing inter tarsal,, tarsal metatarsal, metatarsal-phalangeal all interphalangeal joints. Hallux orientation interphalangeal joint. 1st metatarsal-phalangeal joint arthrosis Partially visualized is deformity of the osseous lower leg around a tibial intra medullary ike compatible with posttraumatic inferred healing deformity. To distal horizontal screws at ankle and subtalar joint levels appear grossly intact. No periosteal reaction appreciated. No gross cortical fracture noted. Mild hammertoe orientations noted. JOINTS: As above SOFT TISSUES: Diffusely swollen mainly about the hindfoot and lower leg. No gas-forming cellulitis seen. OTHER FINDINGS: None. IMPRESSION: No acute fracture or dislocation noted. Orthopedic fixation and/or fusion hardware present posttraumatic healed tibial and fibular bony deformities noted. No hardware failure seen Diffuse osteopenia and diffuse multifocal degenerative osteoarthrosis.
--- NOTE | 2018-06-19 08:32 | RAD ---
Date of service: 06/18/2018 PROCEDURE: Left Ankle Radiographs. HISTORY: fall/pain COMPARISON: None available. FINDINGS: BONES: Anatomy at the ankle is altered deformed-tibial intramedullary hardware present and intact. Deformity due to prior trauma (mostly remote) with healing is inferred. There is some cortical offset at the medial distal tibial diaphyseal metaphyseal junction series 1, image 1 the soft tissue here does not appear more focally swollen than elsewhere the chronicity of this appearance is unclear (unknown if acute on chronic trauma here is present. Proximal to this there is some lucencies and altered bony tubulation post traumatic deformity here probable chronic osteomyelitis residual in here likely. JOINTS: Diffuse osteoarthrosis. Ankle mortise obscured fusion suggested. Talar dome obscured by hardware SOFT TISSUES: Diffuse reticulated subcutaneous edema lower leg as well as ankle and hindfoot level additional soft tissue swelling primarily over the dorsum of the mid forefoot level. Lymphedema at the sites and cellulitis are compatible with this. No gas-forming cellulitis appreciated. OTHER FINDINGS: None. IMPRESSION: Limited exam without the evaluate of prior studies to assess for change of obvious chronic findings associated with prior remote trauma as well as inferred prior chronic osteomyelitis Acute on chronic trauma-for example along the distal medial diaphyseal metaphyseal junctional cortex here cannot be excluded slight cortical offset suggested Acute on chronic osteomyelitis also cannot be excluded. The extensive soft tissue swelling present is compatible with lymphedema as well as cellulitis. No gas-forming cellulitis seen. No particularly acute immature appearing periosteal reaction seen. No discrete focal cortical obvious destruction seen in terms of assessing for acute or subacute osteomyelitis appreciated. Correlate with the physical clinical exam. And comparison with prior studies is advised. Consider MRI of any anatomical segment of particular clinical suspicion
--- NOTE | 2018-06-19 08:35 | RAD ---
Date of service: 06/18/2018 PROCEDURE: Left Knee Radiographs. HISTORY: Pain. COMPARISON: None. FINDINGS: BONES: No acute fracture lines noted. Extensive hardware lateral plating distal femur with intra medullary femoral and intra medullary tibial ike is present. Horizontal screws through condyles noted No hardware failure appreciated. JOINTS: No acute cortical fracture seen sliver like bony density borders the medial metaphysis fat planes here. Grossly unremarkable likely chronic appearance Well corticated bony density near distal expectant patellar tendon/anterior tibial tuberosity-chronic finding. JOINT EFFUSION: No significant joint effusion appreciated. OTHER FINDINGS: None. IMPRESSION: No acute fracture site suspect. No hardware failure appreciated. Limited exam without prior studies to assess for any changes. Other findings as above.
[2018-06-19] MEDS: Dextrose 5%/0.45% NS 1,000 ML IV SCH ×2 (08:45→20:46)
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
--- NOTE | 2018-06-19 09:16 | RAD ---
Date of service: 06/18/2018 PROCEDURE: Radiographs of the Left Shoulder HISTORY: fall/pain COMPARISON: 10/26/2017, angio CT chest 05/20/2017, chest x-ray 01/29/2012 FINDINGS: BONES: Right internal jugular vein central venous access port in place tip superior vena cava near right atrial entrance. Similar in appearance A 1.4 x 0.7 cm metallic like density projects over the T3 vertebral body and central trachea on this exam-this corresponds to a metallic density within the spinal canal at the approximate T3 level. Correlate clinically No acute fractures noted. JOINTS: Minimal left glenohumeral and moderate left acromioclavicular joint osteoarthrosis. SOFT TISSUES: Normal. OTHER FINDINGS: None. IMPRESSION: Osteoarthrosis left shoulder acromioclavicular joint most notably. No fracture dislocation here. Other incidental finding is metallic density which has been shown in the past to be within the spinal canal at the approximate T3 level. Correlate clinically. This has been present dating back to 2011
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
[2018-06-19 09:59] LABS: BASO # 0.1 K/uL (0.0-0.2); BASO % 0.8 % (0.0-2.0); EOS # 0.3 K/uL (0.0-0.7); EOS % 2.4 % (0.0-4.0); LYMPH # 4.4 K/uL (1.0-4.3); LYMPH % 34.8 % (20.0-40.0); MEAN CELL VOLUME 80.6 fL (81.0-99.0); MEAN CORPUSCULAR HEMOGLOBIN 26.7 pg (27.0-31.0); MEAN CORPUSCULAR HGB CONC 33.1 g/dL (33.0-37.0); MONO # 0.6 K/uL (0.0-0.8); MONO % 4.7 % (0.0-10.0); NEUT # 7.3 K/uL (1.8-7.0); NEUT % 57.3 % (50.0-75.0); RBC 4.51 Mil/uL (3.80-5.20); RED CELL DISTRIBUTION WIDTH 16.4 % (11.5-14.5); WHITE BLOOD COUNT 12.7 K/uL (4.8-10.8)
[2018-06-19 10:02] LABS: HEMOGLOBIN 12.1 g/dL (11.0-16.0)
[2018-06-19 10:17] LABS: ALB/GLOB RATIO 1.1 (1.0-2.1); ALBUMIN 3.4 g/dL (3.5-5.0); ALT/SGPT 20 U/L (9-52); AST/SGOT 18 U/L (14-36); BLOOD UREA NITROGEN 10 mg/dL (7-17); CALCIUM 8.3 mg/dl (8.6-10.4); GFR NON-AFRICAN AMERICAN > 60
[2018-06-19] MEDS: Enoxaparin 40 mg Syringe SC SCH (10:57)
--- NOTE | 2018-06-19 11:06 | CT ---
Date of service: 06/18/2018 PROCEDURE: CT Abdomen and Pelvis with contrast HISTORY: abd pain s/p fall COMPARISON: CT abdomen and pelvis with contrast performed 10/26/17 TECHNIQUE: Contrast dose: 100 cc visi opaque 320 IV Radiation dose: Total exam DLP = 902.47 mGy-cm. This CT exam was performed using one or more of the following dose reduction techniques: Automated exposure control, adjustment of the mA and/or kV according to patient size, and/or use of iterative reconstruction technique. FINDINGS: Examination limited by patient obliquity. LOWER THORAX: No visible consolidation, pleural effusion, or pneumothorax. LIVER: Unremarkable. GALLBLADDER AND BILE DUCTS: Unremarkable. PANCREAS: Unremarkable. SPLEEN: 7 mm probable splenule. Otherwise unremarkable. ADRENALS: Unremarkable. KIDNEYS AND URETERS: The kidneys enhance symmetrically. No hydronephrosis or obstructing calculus identified. Nonobstructing bilateral renal calculi. VASCULATURE: No aortic aneurysm. Atherosclerotic calcifications. BOWEL: Stomach is nondistended. Lack of oral contrast limits evaluation for bowel pathology. Bowel loops appear within normal limits of caliber without evidence of obstruction. Mild nonspecific small bowel wall thickening. Marked rectal wall thickening. APPENDIX: The appendix appears within normal limits of caliber. No secondary signs of acute appendicitis. PERITONEUM: No significant free fluid. No definite free air. LYMPH NODES: No bulky adenopathy identified. BLADDER: Suprapubic catheter with tip in urinary bladder lumen. REPRODUCTIVE: Lobulated heterogeneous uterus with calcifications consistent with fibroids. BONES: Osseous demineralization. Degenerative changes. Partially imaged left intramedullary ike. Severe degenerative changes of the hip. OTHER FINDINGS: Ventral hernia containing bowel without obstruction. IMPRESSION: Rectal wall thickening. Correlate clinically for possibility of infectious/inflammatory etiologies. If indicated follow-up with sigmoidoscopy/colonoscopy may be considered. Nonspecific small bowel wall thickening. Correlate for possibility of enteritis. Suprapubic catheter within a decompressed urinary bladder. Heterogeneous appearance of the uterus consistent with fibroids. Nonobstructing bilateral renal calculi. Additional findings as above. Preliminary impression was provided by [employer].
--- NOTE | 2018-06-19 11:56 | PCM.SEPTIC ---
Sepsis Progress Note - Reassessment Type Date of Evaluation: 06/19/18 Time of Evaluation: 10:24 Reassessment Type: Non-invasive reassessment - Non Invasive Reassessment Were the most recent vital sign reviewed: Yes Vital Sign (Latest): Temp Pulse Resp BP Pulse Ox 98.2 F 102 H 17 94/63 L 98 06/19/18 05:13 06/19/18 09:38 06/19/18 06:11 06/19/18 09:38 06/19/18 07:36 Cardiovascular: Yes: Regular Rate, Rhythm. No: Chest Non Tender, Edema, Murmur Respiratory: Yes: Normal Breath Sounds. No: Decreased Breath Sounds, Crackles, Rales, Rhonchi, Wheezing Capillary Refill: Normal (Less than 2 sec) Pulses: Normal Radial Skin: Normal Color, Warm Was a passive leg raise performed or was a fluid challenge performed within 6 hrs of the initial fluid bolus: Yes Passive Leg Raise Result: Not Applicable Fluid Challenge performed: Yes
[2018-06-19] MEDS ORDERED: Lactated Ringer's 1,000 ML IV ONE (12:00)
[2018-06-19] MEDS: Saccharomyces Boulardi 250 mg Cap PO SCH ×2 (12:45→18:27)
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
[2018-06-19] MEDS: SILVASORB ANTIMICROBIAL WOUND GEL TOP SCH (13:20)
[2018-06-19] MEDS ORDERED: Meropenem 1 GM in Sodium Chloride 0.9% 100 ML IVPB SCH (14:00)
[2018-06-19] MEDS ORDERED: Potassium Chloride 20 mEq ER Tab PO ONE (15:00)
[2018-06-19] MEDS: Meropenem 1 GM in Sodium Chloride 0.9% 100 ML IVPB SCH (16:38)
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
[2018-06-20] MEDS: Meropenem 1 GM in Sodium Chloride 0.9% 100 ML IVPB SCH ×3 (00:08→16:40)
[2018-06-20] MEDS: Dextrose 5%/0.45% NS 1,000 ML IV SCH (06:14)
--- NOTE | 2018-06-20 07:06 | HP ---
HISTORY OF PRESENT ILLNESS: The patient chief complaint of abdominal pain, swollen abdomen, weakness, fatigue, poor appetite, came to the ER, advised admission. The patient has sepsis, paraplegia, history of chronic UTI, neurogenic bladder. PHYSICAL EXAMINATION: GENERAL: The patient is awake, alert, oriented. VITAL SIGNS: blood pressure /70. HEENT: Within normal limits. NECK: Supple. CHEST: Symmetrical. HEART: Regular. ABDOMEN: Soft. There is tenderness in lower abdomen. There is a suprapubic catheter placed. EXTREMITIES: No edema. ASSESSMENT AND PLAN: The patient suffers from urinary tract infection, sepsis, paraplegia. The patient is placed on intravenous antibiotics. Urology and Infectious Disease consult . Chelsea Dodd MD
[2018-06-20 08:03] LABS: BASO # 0.1 K/uL (0.0-0.2); BASO % 0.5 % (0.0-2.0); EOS # 0.3 K/uL (0.0-0.7); EOS % 2.7 % (0.0-4.0); HEMOGLOBIN 12.9 g/dL (11.0-16.0); LYMPH # 3.2 K/uL (1.0-4.3); LYMPH % 26.6 % (20.0-40.0); MEAN CELL VOLUME 80.9 fL (81.0-99.0); MEAN CORPUSCULAR HEMOGLOBIN 26.4 pg (27.0-31.0); MEAN CORPUSCULAR HGB CONC 32.6 g/dL (33.0-37.0); MEAN PLATELET VOLUME 8.3 fL (7.2-11.7); MONO # 0.6 K/uL (0.0-0.8); MONO % 5.3 % (0.0-10.0); NEUT # 7.8 K/uL (1.8-7.0); NEUT % 64.9 % (50.0-75.0); NRBC % 0.1 % (0.0-2.0); RBC 4.87 Mil/uL (3.80-5.20); RED CELL DISTRIBUTION WIDTH 16.4 % (11.5-14.5)
[2018-06-20 08:21] LABS: ALB/GLOB RATIO 1.1 (1.0-2.1); ALBUMIN 3.5 g/dL (3.5-5.0); ALT/SGPT 28 U/L (9-52); AST/SGOT 17 U/L (14-36); BLOOD UREA NITROGEN 8 mg/dL (7-17); CALCIUM 8.3 mg/dl (8.6-10.4); GFR NON-AFRICAN AMERICAN > 60
--- NOTE | 2018-06-20 10:09 | CP.PCM.PN ---
Subjective - Date & Time of Evaluation Date of Evaluation: 06/20/18 Time of Evaluation: 07:40 - Subjective Subjective: Medicine progress note (Dr. Dodd's service) Patient was seen and examined at bedside while resting comfortably in bed. Patient reports that she is doing well and has no acute issues or complaints. Patient denies any symptoms of fever, chills, nausea, vomiting, chest pain, palpitations, shortness of breath, dizziness, nausea, vomiting, abdominal pain and diarrhea. Objective - Vital Signs/Intake and Output Vital Signs (last 24 hours): Temp Pulse Resp BP Pulse Ox 97.9 F 82 20 121/77 99 06/20/18 07:06 06/20/18 07:06 06/20/18 07:06 06/20/18 07:06 06/20/18 07:06 Intake and Output: 06/20/18 06/20/18 06:59 18:59 Intake Total 1300 100 Output Total 1000 2000 Balance 300 -1900 - Medications Medications: Current Medications Diphenhydramine HCl (Benadryl) 50 mg PO Q8 PRN PRN Reason: Allergy symptoms Enoxaparin Sodium (Lovenox) 40 mg SC DAILY [facility] Last Admin: 06/19/18 10:57 Dose: 40 mg Dextrose/Sodium Chloride (Dextrose 5%/0.45% Ns 1000 Ml) 1,000 mls @ 100 mls/hr IV .Q10H [facility] Last Admin: 06/20/18 06:14 Dose: 100 mls/hr Gentamicin Sulfate 80 mg/ (Sodium Chloride) 102 mls @ 100 mls/hr IVPB Q8H [facility]; Protocol Last Admin: 06/20/18 04:08 Dose: 100 mls/hr Meropenem 1 gm/ Sodium (Chloride) 100 mls @ 100 mls/hr IVPB Q8H [facility]; Protocol Last Admin: 06/20/18 08:51 Dose: 100 mls/hr Oxycodone/Acetaminophen (Percocet 5/325 Mg Tab) 1 tab PO Q4H PRN PRN Reason: Pain, moderate (4-7) Stop: 06/21/18 23:00 Last Admin: 06/19/18 01:37 Dose: 1 tab Pantoprazole Sodium (Protonix Ec Tab) 40 mg PO DAILY [facility] Saccharomyces Boulardii (Florastor) 250 mg PO BID [facility] Last Admin: 06/19/18 18:27 Dose: 250 mg - Labs Labs: 06/20/18 07:54 06/20/18 07:54 PT 10.8 SECONDS (9.7-12.2) 06/18/18 19:43 INR 1.0 06/18/18 19:43 APTT 37 SECONDS (21-34) H 06/18/18 19:43 - Constitutional Appears: No Acute Distress - Head Exam Head Exam: ATRAUMATIC, NORMAL INSPECTION - Eye Exam Eye Exam: EOMI - ENT Exam ENT Exam: Mucous Membranes Moist - Respiratory Exam Respiratory Exam: Clear to Ausculation Bilateral, NORMAL BREATHING PATTERN. absent: Chest Wall Tenderness, Decreased Breath Sounds, Rhonchi, Wheezes - Cardiovascular Exam Cardiovascular Exam: REGULAR RHYTHM, +S1, +S2. absent: Murmur - GI/Abdominal Exam GI & Abdominal Exam: Soft, Normal Bowel Sounds. absent: Distended, Firm, Guarding, Rigid, Tenderness - Rectal Exam Additional comments: Stage 3 ulcer right gluteal fold, dressed and cleaned - Exam Additional comments: Suprapubic catheter in place - Extremities Exam Extremities Exam: absent: Pedal Edema - Back Exam Back Exam: absent: CVA tenderness (L), CVA tenderness (R) - Neurological Exam Neurological Exam: Alert, Awake, Oriented x3 - Psychiatric Exam Psychiatric exam: Normal Affect - Skin Skin Exam: Normal Color Additional comments: Right gluteal fold 1X 0.5CM stage 3 ulcer; dressing is clean, dry and intact Assessment and Plan (1) Status post fall Assessment & Plan: Stable Imaging: Left Hip X-ray: No gross acute appearing fracture. Inferred are chronic posttraumatic deformities and multifocal femoral chronic osteomyelitis regions. No acute appearing periosteal reaction or acute appearing cortical destruction to suggest acute osteomyelitis. No hardware failure appreciated. Left Shoulder: Osteoarthrosis left shoulder acromioclavicular joint most notably. No fracture dislocation here. Other incidental finding is metallic density which has been shown in the past to be within the spinal canal at the approximate T3 level. Correlate clinically. This has been present dating back to 2011 Left Knee X-ray: No acute fracture site suspect. No hardware failure appreciated. Left ankle X-ray: Limited exam without the evaluate of prior studies to assess for change of obvious chronic findings associated with prior remote trauma as well as inferred prior chronic osteomyelitis. Acute on chronic trauma-for example along the distal medial diaphyseal metaphyseal junctional cortex here cannot be excluded slight cortical offset suggested. Acute on chronic os teomyelitis also cannot be excluded. The extensive soft tissue swelling present is compatible with lymphedema as well as cellulitis. No gas-forming cellulitis seen. No particularly acute immature appearing periosteal reaction seen. No discrete focal cortical obvious destruction seen in terms of assessing for acute or subacute osteomyelitis appreciated. Correlate with the physical clinical exa m. And comparison with prior studies is advised. Consider MRI of any anatomical segment of particular clinical suspicion Left foot X-ray: No acute fracture or dislocation noted. Orthopedic fixation and/or fusion hardware present posttraumatic healed tibial and fibular bony deformities noted. No hardware failure seen. Diffuse osteopenia and diffuse multifocal degenerative osteoarthrosis Status: Acute (2) Sepsis Assessment & Plan: Consult, ID, Dr. Hanna on board Code sepsis called on the floors Possibly 2/2 UTI and gluteal fold ulcer On admission: WBC: 17.7 and HR (104) UA: + Nitrate and 2+ LE. UC: Gram negative ike BC: Negative after 24 hours Wound culture negative after 24 hours Lactate: 2.2, trending 1.1, normalized Chest x-ray: No active disease Zosyn 3.375gm IV once in the ED, Benadryl given for mild reaction Gentamicin 120mg IV once and then Gentamicin 80mg IV Q8H (started 06/19/17) Meropenem 1gm IV Q8H (06/19/17) Florastor 250mg PO BID Lactate ringer 2.3 L bolus over 30mins 1/2NSD5 @ 100MLS/HR Status: Acute (3) UTI (urinary tract infection) Assessment & Plan: WBC: 17.7 and HR (104) UA: + Nitrate and 2+ LE, UC: Gram negative rods Gentamicin 120mg IV once and then Gentamicin 80mg IV Q8H. UC sensitive to gentamicin on recent admission (06/19/17) Florastor 250mg PO BID Status: Acute (4) Chronic pain Assessment & Plan: Percocet 1 tab PO Q4H PRN Status: Acute (5) Stage III pressure ulcer Assessment & Plan: Wound care consult * Management as per recommendation Right Gluteal fold ulcer Repositioning every two hours Wound Culture: negative Status: Acute (6) Prophylactic measure Assessment & Plan: DVT: Lovenox 40mg SC daily GI: Protonix 40mg PO daily All plans and management discussed with Dr. Dodd Status: Acute
[2018-06-20] MEDS: Pantoprazole 40 mg EC Tab PO SCH (10:45)
[2018-06-20] MEDS: Enoxaparin 40 mg Syringe SC SCH (10:45)
[2018-06-20] MEDS: Saccharomyces Boulardi 250 mg Cap PO SCH ×2 (10:45→17:12)
[2018-06-20] MEDS: Oxycodone/Acetaminophen 5/325 mg Tab PO PRN (11:24)
--- NOTE | 2018-06-20 12:18 | CP.PCM.PN ---
Subjective - Date & Time of Evaluation Date of Evaluation: 06/20/18 Time of Evaluation: 12:15 - Subjective Subjective: Pt who is known to me who has a permenant suprapubic tube(24fr)the tube is overdue for change pt has latex alergy. Staff says the [facility] has no 24FR non latex cath in stock. Suggest order proper cath and notify me when available. Pt advised Objective - Vital Signs/Intake and Output Vital Signs (last 24 hours): Temp Pulse Resp BP Pulse Ox 97.9 F 82 20 121/77 99 06/20/18 07:06 06/20/18 07:06 06/20/18 07:06 06/20/18 07:06 06/20/18 07:06 Intake and Output: 06/20/18 06/20/18 06:59 18:59 Intake Total 1300 100 Output Total 1000 2000 Balance 300 -1900 - Medications Medications: Current Medications Diphenhydramine HCl (Benadryl) 50 mg PO Q8 PRN PRN Reason: Allergy symptoms Enoxaparin Sodium (Lovenox) 40 mg SC DAILY [facility] Last Admin: 06/20/18 10:45 Dose: 40 mg Dextrose/Sodium Chloride (Dextrose 5%/0.45% Ns 1000 Ml) 1,000 mls @ 100 mls/hr IV .Q10H [facility] Last Admin: 06/20/18 06:14 Dose: 100 mls/hr Gentamicin Sulfate 80 mg/ (Sodium Chloride) 102 mls @ 100 mls/hr IVPB Q8H [facility]; Protocol Last Admin: 06/20/18 04:08 Dose: 100 mls/hr Meropenem 1 gm/ Sodium (Chloride) 100 mls @ 100 mls/hr IVPB Q8H [facility]; Protocol Last Admin: 06/20/18 08:51 Dose: 100 mls/hr Oxycodone/Acetaminophen (Percocet 5/325 Mg Tab) 1 tab PO Q4H PRN PRN Reason: Pain, moderate (4-7) Stop: 06/21/18 23:00 Last Admin: 06/20/18 11:24 Dose: 1 tab Pantoprazole Sodium (Protonix Ec Tab) 40 mg PO DAILY [facility] Last Admin: 06/20/18 10:45 Dose: 40 mg Saccharomyces Boulardii (Florastor) 250 mg PO BID [facility] Last Admin: 06/20/18 10:45 Dose: 250 mg - Labs Labs: 06/20/18 07:54 06/20/18 07:54 PT 10.8 SECONDS (9.7-12.2) 06/18/18 19:43 INR 1.0 06/18/18 19:43 APTT 37 SECONDS (21-34) H 06/18/18 19:43
[2018-06-20] MEDS: Sodium Chloride 0.9% 1,000 ML IV SCH (15:00)
--- NOTE | 2018-06-20 17:05 | CP.PCM.PN ---
Subjective - Date & Time of Evaluation Date of Evaluation: 06/20/18 Time of Evaluation: 09:00 - Subjective Subjective: events noted gu follow up noted iv rx in progress requesting removal of port Objective - Vital Signs/Intake and Output Vital Signs (last 24 hours): Temp Pulse Resp BP Pulse Ox 98.0 F 82 20 102/71 97 06/20/18 15:00 06/20/18 15:00 06/20/18 15:00 06/20/18 15:00 06/20/18 15:00 Intake and Output: 06/20/18 06/20/18 06:59 18:59 Intake Total 1300 100 Output Total 1000 2000 Balance 300 -1900 - Medications Medications: Current Medications Diphenhydramine HCl (Benadryl) 50 mg PO Q8 PRN PRN Reason: Allergy symptoms Enoxaparin Sodium (Lovenox) 40 mg SC DAILY [facility] Last Admin: 06/20/18 10:45 Dose: 40 mg Gentamicin Sulfate 80 mg/ (Sodium Chloride) 102 mls @ 100 mls/hr IVPB Q8H [facility]; Protocol Last Admin: 06/20/18 12:30 Dose: 100 mls/hr Meropenem 1 gm/ Sodium (Chloride) 100 mls @ 100 mls/hr IVPB Q8H [facility]; Protocol Last Admin: 06/20/18 16:40 Dose: 100 mls/hr Sodium Chloride (Sodium Chloride 0.9%) 1,000 mls @ 100 mls/hr IV .Q10H [facility] Last Admin: 06/20/18 15:00 Dose: 100 mls/hr Oxycodone/Acetaminophen (Percocet 5/325 Mg Tab) 1 tab PO Q4H PRN PRN Reason: Pain, moderate (4-7) Stop: 06/21/18 23:00 Last Admin: 06/20/18 11:24 Dose: 1 tab Pantoprazole Sodium (Protonix Ec Tab) 40 mg PO DAILY [facility] Last Admin: 06/20/18 10:45 Dose: 40 mg Saccharomyces Boulardii (Florastor) 250 mg PO BID [facility] Last Admin: 06/20/18 10:45 Dose: 250 mg - Labs Labs: 06/20/18 07:54 06/20/18 07:54 PT 10.8 SECONDS (9.7-12.2) 06/18/18 19:43 INR 1.0 06/18/18 19:43 APTT 37 SECONDS (21-34) H 06/18/18 19:43 - Constitutional Appears: Non-toxic, Chronically Ill - Head Exam Head Exam: NORMOCEPHALIC - Eye Exam Eye Exam: absent: Scleral icterus - ENT Exam ENT Exam: Mucous Membranes Dry - Neck Exam Neck Exam: absent: Lymphadenopathy - Respiratory Exam Respiratory Exam: Decreased Breath Sounds - Cardiovascular Exam Cardiovascular Exam: REGULAR RHYTHM - GI/Abdominal Exam GI & Abdominal Exam: Distended - Rectal Exam Rectal Exam: Deferred - Exam Exam: NORMAL INSPECTION - Extremities Exam Extremities Exam: absent: Pedal Edema Additional comments: weakness bilat - Back Exam Back Exam: absent: CVA tenderness (L), CVA tenderness (R) - Neurological Exam Neurological Exam: Alert, Awake, CN II-XII Intact, Oriented x3 Assessment and Plan (1) Abdominal pain Status: Acute (2) Chronic pain Status: Acute (3) UTI (urinary tract infection) Status: Acute - Assessment and Plan (Free Text) Assessment: cont rx UTI await c/s report
[2018-06-21] MEDS: Meropenem 1 GM in Sodium Chloride 0.9% 100 ML IVPB SCH ×4 (00:23→23:45)
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
[2018-06-21 07:57] LABS: BASO # 0.1 K/uL (0.0-0.2); BASO % 0.8 % (0.0-2.0); EOS # 0.4 K/uL (0.0-0.7); HEMOGLOBIN 12.7 g/dL (11.0-16.0); LYMPH # 4.4 K/uL (1.0-4.3); LYMPH % 35.1 % (20.0-40.0); MEAN CELL VOLUME 81.4 fL (81.0-99.0); MEAN CORPUSCULAR HEMOGLOBIN 26.9 pg (27.0-31.0); MEAN CORPUSCULAR HGB CONC 33.1 g/dL (33.0-37.0); MEAN PLATELET VOLUME 8.4 fL (7.2-11.7); MONO # 0.5 K/uL (0.0-0.8); MONO % 4.3 % (0.0-10.0); NEUT # 7.1 K/uL (1.8-7.0); NEUT % 56.8 % (50.0-75.0); NRBC % 0.1 % (0.0-2.0); RBC 4.72 Mil/uL (3.80-5.20); RED CELL DISTRIBUTION WIDTH 16.3 % (11.5-14.5); WHITE BLOOD COUNT 12.5 K/uL (4.8-10.8)
[2018-06-21 08:12] LABS: ALB/GLOB RATIO 1.1 (1.0-2.1); ALBUMIN 3.4 g/dL (3.5-5.0); ALT/SGPT 20 U/L (9-52); AST/SGOT 13 U/L (14-36); BLOOD UREA NITROGEN 10 mg/dL (7-17); CALCIUM 8.4 mg/dl (8.6-10.4); GFR NON-AFRICAN AMERICAN > 60
[2018-06-21] MEDS: Enoxaparin 40 mg Syringe SC SCH (09:23)
[2018-06-21] MEDS: Saccharomyces Boulardi 250 mg Cap PO SCH ×2 (09:23→17:25)
[2018-06-21] MEDS: Pantoprazole 40 mg EC Tab PO SCH (09:23)
[2018-06-21] MEDS: SILVASORB ANTIMICROBIAL WOUND GEL TOP SCH (09:23)
[2018-06-21] MEDS: Sodium Chloride 0.9% 1,000 ML IV SCH ×3 (10:15→20:17)
[2018-06-22] MEDS: Meropenem 1 GM in Sodium Chloride 0.9% 100 ML IVPB SCH (08:09)
[2018-06-22 08:21] LABS: BASO % 0.4 % (0.0-2.0); EOS # 0.3 K/uL (0.0-0.7); EOS % 2.6 % (0.0-4.0); HEMOGLOBIN 13.2 g/dL (11.0-16.0); LYMPH % 24.2 % (20.0-40.0); MEAN CELL VOLUME 81.4 fL (81.0-99.0); MEAN CORPUSCULAR HEMOGLOBIN 26.1 pg (27.0-31.0); MEAN CORPUSCULAR HGB CONC 32.1 g/dL (33.0-37.0); MEAN PLATELET VOLUME 8.4 fL (7.2-11.7); MONO # 0.6 K/uL (0.0-0.8); MONO % 4.7 % (0.0-10.0); NEUT # 8.3 K/uL (1.8-7.0); NEUT % 68.1 % (50.0-75.0); NRBC % 0.1 % (0.0-2.0); RBC 5.06 Mil/uL (3.80-5.20); RED CELL DISTRIBUTION WIDTH 16.8 % (11.5-14.5); WHITE BLOOD COUNT 12.2 K/uL (4.8-10.8)
[2018-06-22 08:30] LABS: ALB/GLOB RATIO 1.1 (1.0-2.1); ALBUMIN 3.7 g/dL (3.5-5.0); ALT/SGPT 15 U/L (9-52); AST/SGOT 18 U/L (14-36); BLOOD UREA NITROGEN 9 mg/dL (7-17); GFR NON-AFRICAN AMERICAN > 60
[2018-06-22] MEDS: Enoxaparin 40 mg Syringe SC SCH (09:49)
[2018-06-22] MEDS: Pantoprazole 40 mg EC Tab PO SCH (09:49)
[2018-06-22] MEDS: Saccharomyces Boulardi 250 mg Cap PO SCH ×2 (09:49→17:44)
[2018-06-22] MEDS: SILVASORB ANTIMICROBIAL WOUND GEL TOP SCH (10:50)
--- NOTE | 2018-06-22 16:48 | CP.PCM.PN ---
Subjective - Date & Time of Evaluation Date of Evaluation: 06/22/18 Time of Evaluation: 09:00 - Subjective Subjective: improving on IV antibiotics Objective - Vital Signs/Intake and Output Vital Signs (last 24 hours): Temp Pulse Resp BP Pulse Ox 97.6 F 90 20 109/69 95 06/22/18 07:44 06/22/18 16:02 06/22/18 07:44 06/22/18 07:44 06/22/18 07:44 Intake and Output: 06/22/18 06/22/18 06:59 18:59 Intake Total 1600 900 Output Total 2900 950 Balance -1300 -50 - Medications Medications: Current Medications Acetaminophen (Tylenol 325mg Tab) 650 mg PO Q6 PRN PRN Reason: pain or fever >100.4F Last Admin: 06/22/18 09:49 Dose: 650 mg Diphenhydramine HCl (Benadryl) 50 mg PO Q8 PRN PRN Reason: Allergy symptoms Last Admin: 06/21/18 11:59 Dose: 50 mg Enoxaparin Sodium (Lovenox) 40 mg SC DAILY [facility] Last Admin: 06/22/18 09:49 Dose: 40 mg Gentamicin Sulfate 80 mg/ (Sodium Chloride) 102 mls @ 100 mls/hr IVPB Q8H [facility]; Protocol Last Admin: 06/22/18 12:28 Dose: 100 mls/hr Meropenem 1 gm/ Sodium (Chloride) 100 mls @ 100 mls/hr IVPB Q8H [facility]; Protocol Last Admin: 06/22/18 08:09 Dose: 100 mls/hr Sodium Chloride (Sodium Chloride 0.9%) 1,000 mls @ 100 mls/hr IV .Q10H [facility] Last Admin: 06/21/18 20:17 Dose: Not Given Pantoprazole Sodium (Protonix Ec Tab) 40 mg PO DAILY [facility] Last Admin: 06/22/18 09:49 Dose: 40 mg Saccharomyces Boulardii (Florastor) 250 mg PO BID [facility] Last Admin: 06/22/18 09:49 Dose: 250 mg - Labs Labs: 06/22/18 07:56 06/22/18 07:56 PT 10.8 SECONDS (9.7-12.2) 06/18/18 19:43 INR 1.0 06/18/18 19:43 APTT 37 SECONDS (21-34) H 06/18/18 19:43 - Constitutional Appears: Non-toxic, Chronically Ill - Head Exam Head Exam: NORMOCEPHALIC - Eye Exam Eye Exam: absent: Scleral icterus - ENT Exam ENT Exam: Mucous Membranes Dry - Neck Exam Neck Exam: absent: Lymphadenopathy - Respiratory Exam Respiratory Exam: Decreased Breath Sounds - Cardiovascular Exam Cardiovascular Exam: REGULAR RHYTHM - GI/Abdominal Exam GI & Abdominal Exam: Distended, Soft - Rectal Exam Rectal Exam: Deferred - Exam Exam: NORMAL INSPECTION - Extremities Exam Extremities Exam: absent: Pedal Edema Assessment and Plan (1) Abdominal pain Status: Acute (2) Chronic pain Status: Acute (3) UTI (urinary tract infection) Status: Acute - Assessment and Plan (Free Text) Assessment: consider d/c genta consider plastics eval
[2018-06-22] MEDS: Sodium Chloride 0.9% 1,000 ML IV SCH (19:00)
[2018-06-23] MEDS: Sodium Chloride 0.9% 1,000 ML IV SCH ×2 (02:47→06:45)
[2018-06-23 03:34] LABS: BASO # 0.1 K/uL (0.0-0.2); BASO % 0.9 % (0.0-2.0); EOS # 0.4 K/uL (0.0-0.7); EOS % 2.9 % (0.0-4.0); LYMPH # 4.3 K/uL (1.0-4.3); MEAN CELL VOLUME 80.6 fL (81.0-99.0); MEAN CORPUSCULAR HEMOGLOBIN 26.5 pg (27.0-31.0); MEAN CORPUSCULAR HGB CONC 32.9 g/dL (33.0-37.0); MEAN PLATELET VOLUME 7.7 fL (7.2-11.7); MONO # 0.7 K/uL (0.0-0.8); MONO % 5.5 % (0.0-10.0); NEUT # 8.2 K/uL (1.8-7.0); NEUT % 59.7 % (50.0-75.0); RBC 4.52 Mil/uL (3.80-5.20); RED CELL DISTRIBUTION WIDTH 16.4 % (11.5-14.5); WHITE BLOOD COUNT 13.7 K/uL (4.8-10.8)
[2018-06-23 03:48] LABS: ALB/GLOB RATIO 1.1 (1.0-2.1); ALBUMIN 3.6 g/dL (3.5-5.0); ALT/SGPT 19 U/L (9-52); AST/SGOT 16 U/L (14-36); BLOOD UREA NITROGEN 10 mg/dL (7-17); GFR NON-AFRICAN AMERICAN > 60
--- NOTE | 2018-06-23 09:01 | CP.PCM.PN ---
Subjective - Date & Time of Evaluation Date of Evaluation: 06/23/18 Time of Evaluation: 07:00 - Subjective Subjective: Medicine progress note (Dr. Dodd) Patient was seen and examined at bedside while resting comfortably in bed. Patient reports that she is doing well and has no acute issues or complaints. Patient denies any symptoms of fever, chills, nausea, vomiting, chest pain, palpitations, shortness of breath, dizziness, nausea, vomiting, abdominal pain and diarrhea. Objective - Vital Signs/Intake and Output Vital Signs (last 24 hours): Temp Pulse Resp BP Pulse Ox 98 F 71 20 124/73 96 06/23/18 07:32 06/23/18 07:40 06/23/18 07:32 06/23/18 07:32 06/23/18 07:32 Intake and Output: 06/23/18 06/23/18 06:59 18:59 Intake Total 1300 Output Total 650 Balance 650 - Medications Medications: Current Medications Acetaminophen (Tylenol 325mg Tab) 650 mg PO Q6 PRN PRN Reason: pain or fever >100.4F Last Admin: 06/22/18 23:59 Dose: 650 mg Diphenhydramine HCl (Benadryl) 50 mg PO Q8 PRN PRN Reason: Allergy symptoms Last Admin: 06/21/18 11:59 Dose: 50 mg Docusate Sodium (Colace) 100 mg PO BID [facility] Last Admin: 06/22/18 19:29 Dose: 100 mg Enoxaparin Sodium (Lovenox) 40 mg SC DAILY [facility] Last Admin: 06/22/18 09:49 Dose: 40 mg Gentamicin Sulfate 80 mg/ (Sodium Chloride) 102 mls @ 100 mls/hr IVPB Q8H [facility]; Protocol Last Admin: 06/23/18 04:30 Dose: 100 mls/hr Sodium Chloride (Sodium Chloride 0.9%) 1,000 mls @ 100 mls/hr IV .Q10H [facility] Last Admin: 06/23/18 06:45 Dose: 100 mls/hr Cefepime HCl 1 gm/ Dextrose 50 mls @ 100 mls/hr IVPB Q8H [facility]; Protocol Last Admin: 06/23/18 01:08 Dose: 100 mls/hr Pantoprazole Sodium (Protonix Ec Tab) 40 mg PO DAILY [facility] Last Admin: 06/22/18 09:49 Dose: 40 mg Saccharomyces Devindii (Florastor) 250 mg PO BID [facility] Last Admin: 06/22/18 17:44 Dose: 250 mg - Labs Labs: 06/23/18 03:31 06/23/18 03:31 PT 10.8 SECONDS (9.7-12.2) 06/18/18 19:43 INR 1.0 06/18/18 19:43 APTT 37 SECONDS (21-34) H 06/18/18 19:43 - Additional Findings Additional findings: - Constitutional Appears: No Acute Distress - Head Exam Head Exam: ATRAUMATIC, NORMAL INSPECTION - Eye Exam Eye Exam: EOMI - ENT Exam ENT Exam: Mucous Membranes Moist - Respiratory Exam Respiratory Exam: Clear to Ausculation Bilateral, NORMAL BREATHING PATTERN. absent: Chest Wall Tenderness, Decreased Breath Sounds, Rhonchi, Wheezes - Cardiovascular Exam Cardiovascular Exam: REGULAR RHYTHM, +S1, +S2. absent: Murmur - GI/Abdominal Exam GI & Abdominal Exam: Soft, Normal Bowel Sounds. absent: Distended, Firm, Guarding, Rigid, Tenderness - Exam Additional comments: Suprapubic catheter in place - Extremities Exam Extremities Exam: absent: Pedal Edema - Back Exam Back Exam: absent: CVA tenderness (L), CVA tenderness (R) - Neurological Exam Neurological Exam: Alert, Awake, Oriented x3 - Psychiatric Exam Psychiatric exam: Normal Affect - Skin Skin Exam: Normal Color Additional comments: Right gluteal fold 1X 0.5CM stage 3 ulcer; dressing is clean, dry and intact Assessment and Plan - Assessment and Plan (Free Text) Assessment: (1) Status post fall Assessment & Plan: Stable Imaging: Left Hip X-ray: No gross acute appearing fracture. Inferred are chronic posttraumatic deformities and multifocal femoral chronic osteomyelitis regions. No acute appearing periosteal reaction or acute appearing cortical destruction to suggest acute osteomyelitis. No hardware failure appreciated. Left Shoulder: Osteoarthrosis left shoulder acromioclavicular joint most notably. No fracture dislocation here. Other incidental finding is metallic density which has been shown in the past to be within the spinal canal at the approximate T3 level. Correlate clinically. This has been present dating back to 2011 Left Knee X-ray: No acute fracture site suspect. No hardware failure appreciated. Left ankle X-ray: Limited exam without the evaluate of prior studies to assess for change of obvious chronic findings associated with prior remote trauma as well as inferred prior chronic osteomyelitis. Acute on chronic trauma-for example along the distal medial diaphyseal metaphyseal junctional cortex here cannot be excluded slight cortical offset suggested. Acute on chronic osteomyelitis also cannot be excluded. The extensive soft tissue swelling present is compatible with lymphedema as well as cellulitis. No gas-forming cellulitis seen. No particularly acute immature appearing periosteal reaction seen. No discrete focal cortical obvious destruction seen in terms of assessing for acute or subacute osteomyelitis appreciated. Correlate with the physical clinical exam. And comparison with prior studies is advised. Consider MRI of any anatomical segment of particular clinical suspicion Left foot X-ray: No acute fracture or dislocation noted. Orthopedic fixation and/or fusion hardware present posttraumatic healed tibial and fibular bony deformities noted. No hardware failure seen. Diffuse osteopenia and diffuse multifocal degenerative osteoarthrosis Tylenol 650mg po q6h prn for pain Toradol 30mg ivp q8h prn for severe pain Status: Acute (2) Sepsis Assessment & Plan: Consult, ID, Dr. Hanna on board Code sepsis called on the floors Possibly 2/2 UTI and gluteal fold ulcer On admission: WBC: 17.7 and HR (104) UA: + Nitrate and 2+ LE. UC: Gram negative ike BC: Negative after 24 hours Wound culture negative after 24 hours Lactate: 2.2, trending 1.1, normalized Chest x-ray: No active disease Zosyn 3.375gm IV once in the ED, Benadryl given for mild reaction Lactate ringer 2.3 L bolus was given over 30mins Gentamicin 120mg IV once and then Gentamicin 80mg IV Q8H (started 06/19/17) Cefepime 1 g q8h (started on 06/22/18) Florastor 250mg PO BID Status: Acute (3) UTI (urinary tract infection) Assessment & Plan: WBC: trending down UA: + Nitrate and 2+ LE, UC: Klebsiella pneumoniae D/C Gentamicin 120mg IV once and then Gentamicin 80mg IV Q8H (stopped on 06/23/18) Cefepime 1 g q8h (started on 06/22/18) Florastor 250mg PO BID Status: Acute (4) Stage III pressure ulcer Assessment & Plan: Wound care consult * Management as per recommendation Right Gluteal fold ulcer Repositioning every two hours Wound Culture: klebsiella, serratia, corynebacterium Status: Acute (5) Onychomadesis Assessment & Plan: Podiatry, Dr. Wall, consulted help appreciated Status: Acute (6) Prophylactic measure Assessment & Plan: DVT: Lovenox 40mg SC daily, scds GI: Protonix 40mg PO daily Physical therapy Status: Acute All plans and management discussed with Dr. Dodd
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
[2018-06-23] MEDS: Pantoprazole 40 mg EC Tab PO SCH (10:18)
[2018-06-23] MEDS: Enoxaparin 40 mg Syringe SC SCH (10:18)
[2018-06-23] MEDS: Saccharomyces Boulardi 250 mg Cap PO SCH ×2 (10:18→17:26)
[2018-06-23] MEDS: SILVASORB ANTIMICROBIAL WOUND GEL TOP SCH (10:19)
--- NOTE | 2018-06-23 15:51 | CP.PCM.PN ---
Subjective - Date & Time of Evaluation Date of Evaluation: 06/23/18 Time of Evaluation: 09:00 - Subjective Subjective: cultures reviewed no MDRO in urine Objective - Vital Signs/Intake and Output Vital Signs (last 24 hours): Temp Pulse Resp BP Pulse Ox 98 F 84 20 124/73 96 06/23/18 07:32 06/23/18 12:00 06/23/18 07:32 06/23/18 07:32 06/23/18 07:32 Intake and Output: 06/23/18 06/23/18 06:59 18:59 Intake Total 1300 800 Output Total 650 1600 Balance 650 -800 - Medications Medications: Current Medications Acetaminophen (Tylenol 325mg Tab) 650 mg PO Q6 PRN PRN Reason: pain or fever >100.4F Last Admin: 06/22/18 23:59 Dose: 650 mg Diphenhydramine HCl (Benadryl) 50 mg PO Q8 PRN PRN Reason: Allergy symptoms Last Admin: 06/21/18 11:59 Dose: 50 mg Docusate Sodium (Colace) [address] [facility] Last Admin: 06/23/18 10:18 Dose: 100 mg Enoxaparin Sodium (Lovenox) [address] [facility] Last Admin: 06/23/18 10:18 Dose: 40 mg Gentamicin Sulfate 80 mg/ (Sodium Chloride) 102 mls @ 100 mls/hr IVPB Q8H [facility]; Protocol Last Admin: 06/23/18 12:38 Dose: Not Given Cefepime HCl 1 gm/ Dextrose 50 mls @ 100 mls/hr IVPB Q8H [facility]; Protocol Last Admin: 06/23/18 10:19 Dose: 100 mls/hr Ketorolac Tromethamine (Toradol) 30 mg IVP Q8H PRN PRN Reason: Pain, severe (8-10) Last Admin: 06/23/18 13:35 Dose: 30 mg Lactic Acid (Lac-Hydrin 12% Lotion (225 G)) [address] [facility] Pantoprazole Sodium (Protonix Ec Tab) [address] [facility] Last Admin: 06/23/18 10:18 Dose: 40 mg Saccharomyces Boulardii (Florastor) 250 mg PO BID [facility] Last Admin: 06/23/18 10:18 Dose: 250 mg - Labs Labs: 06/23/18 03:31 06/23/18 03:31 PT 10.8 SECONDS (9.7-12.2) 06/18/18 19:43 INR 1.0 06/18/18 19:43 APTT 37 SECONDS (21-34) H 06/18/18 19:43 - Constitutional Appears: Non-toxic - Head Exam Head Exam: NORMOCEPHALIC - Eye Exam Eye Exam: absent: Scleral icterus - ENT Exam ENT Exam: Mucous Membranes Dry - Neck Exam Neck Exam: absent: Lymphadenopathy - Respiratory Exam Respiratory Exam: Decreased Breath Sounds - Cardiovascular Exam Cardiovascular Exam: REGULAR RHYTHM - GI/Abdominal Exam GI & Abdominal Exam: Distended - Rectal Exam Rectal Exam: Deferred - Exam Exam: absent: NORMAL INSPECTION - Extremities Exam Extremities Exam: Pedal Edema Assessment and Plan (1) Abdominal pain Status: Acute (2) Chronic pain Status: Acute (3) UTI (urinary tract infection) Status: Acute - Assessment and Plan (Free Text) Assessment: consider plastics eval for wound -non healing cont rx UTI
[2018-06-24 06:58] LABS: BASO # 0.1 K/uL (0.0-0.2); BASO % 0.5 % (0.0-2.0); EOS # 0.4 K/uL (0.0-0.7); EOS % 3.2 % (0.0-4.0); HEMOGLOBIN 12.9 g/dL (11.0-16.0); LYMPH # 3.4 K/uL (1.0-4.3); LYMPH % 25.1 % (20.0-40.0); MEAN CELL VOLUME 81.2 fL (81.0-99.0); MEAN CORPUSCULAR HEMOGLOBIN 26.4 pg (27.0-31.0); MEAN CORPUSCULAR HGB CONC 32.5 g/dL (33.0-37.0); MONO # 0.7 K/uL (0.0-0.8); MONO % 5.2 % (0.0-10.0); RBC 4.9 Mil/uL (3.80-5.20); RED CELL DISTRIBUTION WIDTH 16.5 % (11.5-14.5); WHITE BLOOD COUNT 13.6 K/uL (4.8-10.8)
[2018-06-24 07:31] LABS: ALB/GLOB RATIO 1.2 (1.0-2.1); ALBUMIN 3.8 g/dL (3.5-5.0); ALT/SGPT 28 U/L (9-52); AST/SGOT 30 U/L (14-36); BLOOD UREA NITROGEN 12 mg/dL (7-17); CALCIUM 8.4 mg/dl (8.6-10.4); GFR NON-AFRICAN AMERICAN > 60
[2018-06-24 08:20] VITALS: RESP 20
[2018-06-24] MEDS: Pantoprazole 40 mg EC Tab PO SCH (09:14)
[2018-06-24] MEDS: Saccharomyces Boulardi 250 mg Cap PO SCH (09:14)
[2018-06-24] MEDS: Enoxaparin 40 mg Syringe SC SCH (09:14)
[2018-06-24] MEDS ORDERED: Ammonium Lactate 12% Lotion (225 g) EXT SCH (10:00)
[2018-06-24] MEDS: SILVASORB ANTIMICROBIAL WOUND GEL TOP SCH (10:04)
--- NOTE | 2018-06-24 11:43 | CP.PCM.PN ---
Objective - Vital Signs/Intake and Output Vital Signs (last 24 hours): Temp Pulse Resp BP Pulse Ox 98 F 78 20 119/74 98 06/24/18 08:00 06/24/18 08:00 06/24/18 08:00 06/24/18 08:00 06/24/18 08:00 Intake and Output: 06/24/18 06/24/18 06:59 18:59 Output Total 700 Balance -700 - Medications Medications: Current Medications Acetaminophen (Tylenol 325mg Tab) 650 mg PO Q6 PRN PRN Reason: pain or fever >100.4F Last Admin: 06/22/18 23:59 Dose: 650 mg Diphenhydramine HCl (Benadryl) 50 mg PO Q8 PRN PRN Reason: Allergy symptoms Last Admin: 06/21/18 11:59 Dose: 50 mg Docusate Sodium (Colace) 100 mg PO BID [facility] Last Admin: 06/24/18 09:14 Dose: 100 mg Enoxaparin Sodium (Lovenox) 40 mg SC DAILY [facility] Last Admin: 06/24/18 09:14 Dose: 40 mg Cefepime HCl 1 gm/ Dextrose 50 mls @ 100 mls/hr IVPB Q8H [facility]; Protocol Last Admin: 06/24/18 00:20 Dose: 100 mls/hr Ketorolac Tromethamine (Toradol) 30 mg IVP Q8H PRN PRN Reason: Pain, severe (8-10) Last Admin: 06/23/18 22:07 Dose: 30 mg Lactic Acid (Lac-Hydrin 12% Lotion (225 G)) 0 gm EXT DAILY [facility] Last Admin: 06/24/18 09:13 Dose: 1 applic Pantoprazole Sodium (Protonix Ec Tab) 40 mg PO DAILY [facility] Last Admin: 06/24/18 09:14 Dose: 40 mg Saccharomyces Boulardii (Florastor) 250 mg PO BID [facility] Last Admin: 06/24/18 09:14 Dose: 250 mg - Labs Labs: 06/24/18 06:36 06/24/18 06:36 PT 10.8 SECONDS (9.7-12.2) 06/18/18 19:43 INR 1.0 06/18/18 19:43 APTT 37 SECONDS (21-34) H 06/18/18 19:43 Assessment and Plan (1) Abdominal pain Status: Acute (2) Chronic pain Status: Acute (3) UTI (urinary tract infection) Status: Acute
--- NOTE | 2018-06-24 12:57 | CP.PCM.PN ---
Subjective - Date & Time of Evaluation Date of Evaluation: 06/24/18 Time of Evaluation: 10:00 - Subjective Subjective: Progress Note for Dr. Dodd Patient seen and examined at bedside. No acute events reported overnight. Patient has good appetite and has no pain. She denies fever, chills, headache, shortness of breath, chest pain, nausea, vomiting, or diarrhea. Objective - Vital Signs/Intake and Output Vital Signs (last 24 hours): Temp Pulse Resp BP Pulse Ox 98 F 78 20 119/74 98 06/24/18 08:00 06/24/18 08:00 06/24/18 08:00 06/24/18 08:00 06/24/18 08:00 Intake and Output: 06/24/18 06/24/18 06:59 18:59 Output Total 700 Balance -700 - Medications Medications: Current Medications Acetaminophen (Tylenol 325mg Tab) 650 mg PO Q6 PRN PRN Reason: pain or fever >100.4F Last Admin: 06/22/18 23:59 Dose: 650 mg Diphenhydramine HCl (Benadryl) 50 mg PO Q8 PRN PRN Reason: Allergy symptoms Last Admin: 06/21/18 11:59 Dose: 50 mg Docusate Sodium (Colace) 100 mg PO BID [facility] Last Admin: 06/24/18 09:14 Dose: 100 mg Enoxaparin Sodium (Lovenox) 40 mg SC DAILY [facility] Last Admin: 06/24/18 09:14 Dose: 40 mg Cefepime HCl 1 gm/ Dextrose 50 mls @ 100 mls/hr IVPB Q8H [facility]; Protocol Last Admin: 06/24/18 09:08 Dose: 100 mls/hr Ketorolac Tromethamine (Toradol) 30 mg IVP Q8H PRN PRN Reason: Pain, severe (8-10) Last Admin: 06/23/18 22:07 Dose: 30 mg Lactic Acid (Lac-Hydrin 12% Lotion (225 G)) 0 gm EXT DAILY [facility] Last Admin: 06/24/18 09:13 Dose: 1 applic Pantoprazole Sodium (Protonix Ec Tab) 40 mg PO DAILY [facility] Last Admin: 06/24/18 09:14 Dose: 40 mg Saccharomyces Boulardii (Florastor) 250 mg PO BID [facility] Last Admin: 06/24/18 09:14 Dose: 250 mg - Labs Labs: 06/24/18 06:36 06/24/18 06:36 PT 10.8 SECONDS (9.7-12.2) 06/18/18 19:43 INR 1.0 06/18/18 19:43 APTT 37 SECONDS (21-34) H 06/18/18 19:43 - Additional Findings Additional findings: - Constitutional Appears: No Acute Distress - Head Exam Head Exam: ATRAUMATIC, NORMAL INSPECTION - Eye Exam Eye Exam: EOMI - ENT Exam ENT Exam: Mucous Membranes Moist - Respiratory Exam Respiratory Exam: Clear to Ausculation Bilateral, NORMAL BREATHING PATTERN. absent: Chest Wall Tenderness, Decreased Breath Sounds, Rhonchi, Wheezes - Cardiovascular Exam Cardiovascular Exam: REGULAR RHYTHM, +S1, +S2. absent: Murmur - GI/Abdominal Exam GI & Abdominal Exam: Soft, Normal Bowel Sounds. absent: Distended, Firm, Guarding, Rigid, Tenderness - Exam Additional comments: Suprapubic catheter in place - Extremities Exam Extremities Exam: absent: Pedal Edema - Back Exam Back Exam: absent: CVA tenderness (L), CVA tenderness (R) - Neurological Exam Neurological Exam: Alert, Awake, Oriented x3 - Psychiatric Exam Psychiatric exam: Normal Affect - Skin Skin Exam: Normal Color Additional comments: Right gluteal fold 1X 0.5CM stage 3 ulcer; dressing is clean, dry and intact Assessment and Plan - Assessment and Plan (Free Text) Assessment: (1) Status post fall Stable Imaging: Left Hip X-ray: No gross acute appearing fracture. Inferred are chronic posttraumatic deformities and multifocal femoral chronic osteomyelitis regions. No acute appearing periosteal reaction or acute appearing cortical destruction to suggest acute osteomyelitis. No hardware failure appreciated. Left Shoulder: Osteoarthrosis left shoulder acromioclavicular joint most notably. No fracture dislocation here. Other incidental finding is metallic density which has been shown in the past to be within the spinal canal at the approximate T3 level. Correlate clinically. This has been present dating back to 2011 Left Knee X-ray: No acute fracture site suspect. No hardware failure appreciated. Left ankle X-ray: Limited exam without the evaluate of prior studies to assess for change of obvious chronic findings associated with prior remote trauma as well as inferred prior chronic osteomyelitis. Acute on chronic trauma-for examp le along the distal medial diaphyseal metaphyseal junctional cortex here cannot be excluded slight cortical offset suggested. Acute on chronic osteomyelitis also cannot be excluded. The extensive soft tissue swelling present is compatible with lymphedema as well as cellulitis. No gas-forming cellulitis seen. No particularly acute immature appearing periosteal reaction seen. No discrete focal cortical obvious destruction seen in terms of assessing for acute or subacute osteomyelitis appreciated. Correlate with the physical clinical exam. And comparison with prior studies is advised. Consider MRI of any anatomical segment of particular clinical suspicion Left foot X-ray: No acute fracture or dislocation noted. Orthopedic fixation and/or fusion hardware present posttraumatic healed tibial and fibular bony deformities noted. No hardware failure seen. Diffuse osteopenia and diffuse multifocal degenerative osteoarthrosis Tylenol 650mg po q6h prn for pain Toradol 30mg ivp q8h prn for severe pain (2) Sepsis Improving Consult, ID, Dr. Hanna on board Code sepsis called on the floors Possibly 2/2 UTI and gluteal fold ulcer On admission: WBC: 17.7 and HR (104) UA: + Nitrate and 2+ LE. UC: Gram negative ike BC: Negative after 24 hours Wound culture negative after 24 hours Lactate: 2.2, trending 1.1, normalized Chest x-ray: No active disease Zosyn 3.375gm IV once in the ED, Benadryl given for mild reaction Lactate ringer 2.3 L bolus was given over 30mins Gentamicin 120mg IV once and then Gentamicin 80mg IV Q8H (started 06/19/18, stopped 06/23/18) Cefepime 1 g q8h (started on 06/22/18) Florastor 250mg PO BID (3) UTI (urinary tract infection) WBC: trending down UA: + Nitrate and 2+ LE, UC: Klebsiella pneumoniae D/C Gentamicin 120mg IV once and then Gentamicin 80mg IV Q8H (stopped on 06/23/18) Cefepime 1 g q8h (started on 06/22/18) Florastor 250mg PO BID (4) Stage III pressure ulcer Wound care consult * Management as per recommendation Right Gluteal fold ulcer Repositioning every two hours Wound Culture: klebsiella, serratia, corynebacterium Continue silversorb (5) Onychomadesis Podiatry, Dr. Wall, consulted help appreciated (6) Prophylactic measure DVT: Lovenox 40mg SC daily, scds GI: Protonix 40mg PO daily Physical therapy Dispo: Patient will continue Cefepime 1gm Q8h for [address] be place at subacute per sample case porter. Patient is medically stable to be transferred to [facility]. All plans and management discussed with Dr. Dodd
[2018-06-24 15:38] VITALS: BP 90/58; PULSE 82; TEMP 98.2; O2SAT 96
== END 2018-06-24 17:57 | DRG 871 ==
LOC: C.ER 17:20 → C.9E 22:34 → C.5S 06-19 06:32 → OBSVTOIN 06-20 13:23
PROVIDERS: ADMIT Internal Medicine Pulmonary Disease; ATTEND Internal Medicine Pulmonary Disease
DX: A41.9 Sepsis, unspecified organism (principal); N39.0 Urinary tract infection, site not specified; L89.313 Pressure ulcer of right buttock, stage 3; G82.20 Paraplegia, unspecified; M86.60 Other chronic osteomyelitis, unspecified site; L03.116 Cellulitis of left lower limb; I89.0 Lymphedema, not elsewhere classified; L89.621 Pressure ulcer of left heel, stage 1; L60.1 Onycholysis; B96.1 Klebsiella pneumoniae [K. pneumoniae] as the cause of diseases classified elsewhere; G89.29 Other chronic pain; J45.909 Unspecified asthma, uncomplicated; M19.012 Primary osteoarthritis, left shoulder; M85.80 Other specified disorders of bone density and structure, unspecified site; N18.9 Chronic kidney disease, unspecified; N31.9 Neuromuscular dysfunction of bladder, unspecified; W01.0XXA Fall on same level from slipping, tripping and stumbling without subsequent striking against object, initial encounter; Z93.50 Unspecified cystostomy status; Z74.01 Bed confinement status; Z72.0 Tobacco use; Z86.711 Personal history of pulmonary embolism; Z87.440 Personal history of urinary (tract) infections; Z91.040 Latex allergy status; Z80.3 Family history of malignant neoplasm of breast

== ENCOUNTER 2018-07-14 09:36 | Day surgery (SDC) | payer MEDICARE ==
[2018-07-14] MEDS ORDERED: Lidocaine 2% MPF (5 ml) Inj ONE (11:09)
[2018-07-14] MEDS ORDERED: Midazolam 2 MG/2 ML VIAL ONE (11:26)
[2018-07-14] MEDS ORDERED: Propofol 10 mg/ml Inj (20 ML) ONE (11:26)
[2018-07-14] MEDS ORDERED: HYDROmorphone 0.5 mg/0.5 ml ISec IVP PRN (11:57)
--- NOTE | 2018-07-14 12:04 | PCM.SURG1 ---
Surgeon's Initial Post Op Note - Surgeon's Notes Surgeon: Dr. Rodriguez Experimental Technician: Dr. Silverio PGY-3 Type of Anesthesia: IV Sedation, Local Pre-Operative Diagnosis: Unnecessary venous device Operative Findings: See operative report Post-Operative Diagnosis: Same Operation Performed: Removal of portacath from R neck Specimen/Specimens Removed: Portacath Estimated Blood Loss: EBL {In ML}: 1 Blood Products Given: N/A Drains Used: No Drains Post-Op Condition: Good Date of Surgery/Procedure: 07/14/18 Time of Surgery/Procedure: 12:04
[2018-07-14 13:47] VITALS: BP 109/74; PULSE 77; RESP 18; TEMP 96; O2SAT 98
--- NOTE | 2018-07-14 22:48 | OP ---
PROCEDURE DATE: 07/14/2018 PREOPERATIVE DIAGNOSIS: Unnecessary intravascular device, Port-A-Cath. POSTOPERATIVE DIAGNOSIS: Unnecessary intravascular device, Port-A-Cath. PROCEDURE CARRIED OUT: Removal of Port-A-Cath. DESCRIPTION OF PROCEDURE: The patient was given local anesthesia and intravenous sedation. No antibiotics were given. An incision was made. The port was removed. The catheter was . Both ports were removed, however, successfully. The procedure was terminated after the wound was closed. BLOOD LOSS FOR THE PROCEDURE: 1 mL. OPERATION CARRIED OUT: Removal of Port-A-Cath from right chest wall. Alejo Rodriguez Jr., MD cc: Chelsea Dodd MD
== END 2018-07-14 14:53 | disposition home or self-care (01) ==
LOC: C.SDS 09:36
PROVIDERS: ATTEND Surgery Vascular Surgery
DX: Z45.2 Encounter for adjustment and management of vascular access device (principal); G83.9 Paralytic syndrome, unspecified
CPT/HCPCS: 36590; J2001; J2250; J2704; J3010